=== PATIENT | female | born 1945 | race Caucasian/White ===

== ENCOUNTER 2018-03-08 12:22 | Day surgery (SDC) | payer MEDICARE, SELFPAY ==
--- NOTE | 2018-03-08 | PATH_ITS ---
[facility] Accession Number: [id number] . 01 Material submitted: . COLON POLYP AT 55CM . 02 Diagnosis: Colon Polyp At 55 CM: Hyperplastic polyp. [facility]/03/09/2018 . 02 Electronically signed: . Mirza Julien MD, PhD, Pathologist NPI- [id number] . 01 Gross description: . Received one formalin-filled container labeled with the patient's name and labeled colon polyp at 55 cm. The specimen consists of a 0.2 cm portion of tissue, entirely submitted in one cassette. (DC:[id number]) /FRR . 02 Pathologist provided ICD-10: K63.5 . 02 CPT . 645472 Performed at: 01 [facility] [address] [id number] MD Gerald Dunn MD Phone: [phone] Performed at: 02 [facility] [address] [place], [place] [id number] MD Daniel Jeff MD Phone: [phone]
[2018-03-08 13:15] VITALS: BP 119/74; PULSE 74; RESP 18; TEMP 35.9; O2SAT 100; BMI 22.4
[2018-03-08] MEDS: SODIUM CHLORIDE 0.9% 1,000 ML 84 ML IV (13:36)
[2018-03-08] MEDS: ONDANSETRON 4 MG/2 ML INJ IV (14:19)
--- NOTE | 2018-03-08 14:24 | SUR.PREOP ---
1419: Zofran 4 Mg IV given per Dr Conklin's order. Pt has strong history of nausea and vomiting with sedation/anesthesia medications. will place order, RN to sign. Update given to Endo RN's and Pt taken to endo suite at approximately 1423.
--- NOTE | 2018-03-08 14:25 | PM.PREOP ---
Pre-operative Note Interval Note Pre-op Check: Yes History & Physical Reviewed by Physician, Yes Exam Performed and Yes History & Physical exam performed today by Physician Changes: No H&P completed within 30 days and has changed as indicated here:: 72 yo female for screening colonoscopy, NO BRBPR, no Melena, no bowel habit changes in recent past. This is her 3rd colonoscopy, prior history of small benign polyps. NO blood thinners. Understands risks of possible missed polyp or lesion, bleeding, perforation, infection, sedation or airway. Pleasant female, NAD NCAT Lungs CTA CV RRR Abdomen SOFT, NT ND Extrems WWP, NO CCE Psych A/Ox3 Neuro BALLESTEROS, nonfocal PLAN- Screening colonoscopy ASA Class (for procedural sedation): I (Pleasant female NAD NCAT)
[2018-03-08] MEDS: MIDAZOLAM 5 MG/5 ML VIAL IV (14:34)
[2018-03-08] MEDS: fentaNYL 250 MCG/5 ML INJ IV (14:34)
[2018-03-08 15:20] VITALS: BP 106/67; PULSE 90; RESP 16; TEMP 36.5; O2SAT 96
--- NOTE | 2018-03-08 15:41 | PM.OP.ENDO ---
Operative Date/Time/Diagnoses Date of procedure: 03/08/18 Time of procedure: 15:11 Pre-op diagnosis: Screening for colon malignancy Post-op diagnosis: same Procedure & Clinicians Same procedure as scheduled: Yes Surgeon: Lamonte Conklin Procedure Notes SCOAP/Timeout: Yes Procedure in detail: After informed consent was obtained in the preop holding area including risks and benefits of colonoscopy including perforation missed lesion anesthesia sedation bleeding infection and signs and symptoms patient was taken to the anesthesia suite and given 2 mg of Versed in 100 mcg of fentanyl. Digital rectal exam showed mild external hemorrhoids and no mass lesion. Well lubricated colonoscope was now that into the rectum and advanced to the cecum. Tortuous colon was noted and multiple positions were required. The cecum was identified positively with terminal ileum and ileocecal valve. Withdrawal time was 16 min. Start time was 2:28 pm. finish time was 3:07 pm. Small benign-appearing polyp was seen at 55 cm removed with a single bite of the large cold forceps without significant bleeding. Retroflexion was performed showing no evidence of mass or internal hemorrhoids. The patient tolerated the procedure well was taken to the PACU breathing on her own volition. Scope withdrawal time: 16 min Sedation minutes: 39 Findings: polyp (Small 4mm polyp at 55cm.) Specimen(s): other Complications: none Recommendations: Colonscopy in 5 years Plan for aftercare: Follow up via phone for pathology.
--- NOTE | 2018-03-11 10:03 | PM.PREOP ---
Pre-operative Note Interval Note Pre-op Check: Yes History & Physical Reviewed by Physician and Yes History & Physical exam performed today by Physician Changes: No ASA Class (for procedural sedation): II
--- NOTE | 2018-03-11 10:03 | PM.HP.1 ---
History of Present Illness Date Patient Seen: 03/08/18 Time Patient Seen: 10:04 Chief complaint: colonoscopy [id number] Narrative: Preoperative note for screening colonoscopy Patient History Surgical History Status post tubal ligation Family & Social History Family History: Reviewed 03/11/18 by Lamonte Conklin MD Social History: household members friend(s) Meds Home Medications Medication Instructions Recorded Confirmed Type aspirin [Aspirin Low Dose] 81 mg PO DAILY 03/08/18 03/08/18 History Allergies Allergy/AdvReac Type Severity Reaction Status Date / Time No Known Drug Allergies Allergy Verified 03/08/18 13:34 Review of Systems Review of Systems All systems reviewed & are unremarkable except as noted in HPI and below Exam Vital Signs (past 8 hours): Oxygen Delivery Method Room Air Narrative Exam Narrative: Patient is a pleasant 72-year-old female who appears in good health well-nourished interactive speaking in full sentences. Anicteric sclera No carotid bruits Chest is symmetric clear to auscultation bilaterally good air movement No rhonchi rales or wheezes Heart regular rate and rhythm no murmurs rubs or gallops Abdomen soft nontender no obvious hernia Extremities warm well perfused no cyanosis clubbing or edema Full skin exam not performed Neuro moves all extremities grossly normal Psych is normal alert and oriented x3 normal thought normal judgment Assessment & Plan (1) Special screening for malignant neoplasms, colon: Problem details: Colonoscopy with or without biopsy today Current visit: No Status: Acute
== END 2018-03-08 15:32 | disposition home or self-care (01) ==
LOC: ENDO 12:25
PROVIDERS: PCP Family Medicine; Visit Provider Surgery
PROC: 0DJD8ZZ Inspection of Lower Intestinal Tract, Via Natural or Artificial Opening Endoscopic (ICD-10-PCS; CPT 45378; principal; 2018-03-08 13:00)
DX: Z12.11 Encounter for screening for malignant neoplasm of colon (principal); K63.5 Polyp of colon
CPT/HCPCS: 45380; 88305; 99152; 99153; J2250; J2405; J3010

== ENCOUNTER → 2020-11-22 10:34 | Outpatient (CLI) | payer MEDICARE, SELFPAY | PROVIDERS: PCP Family Medicine; Visit Provider Physician Assistant | DX: N39.0 Urinary tract infection, site not specified (principal) | CPT/HCPCS: 87077; 87086; 87186 ==

== ENCOUNTER → 2020-11-28 15:58 | Outpatient (CLI) | payer MEDICARE, SELFPAY | PROVIDERS: PCP Family Medicine; Visit Provider Physician Assistant Medical | DX: N39.0 Urinary tract infection, site not specified (principal) | CPT/HCPCS: 87086 ==

== ENCOUNTER → 2021-12-23 08:01 | Outpatient (CLI) | payer MEDICARE, SELFPAY ==
[2021-12-23 19:11] LABS: Add Manual Diff / Slide Review NO; Basophils Absolute Auto 0 /uL (0-100); Eosinophils Absolute Auto 200 /uL (0-450); Eosinophils Percent Auto 3.6 % (2-4); Hematocrit 36.9 % (36-46); Hemoglobin 12.5 g/dL (12.0-16.0); Lymphocytes Absolute Auto 1900 /uL (1100-4500); Lymphocytes Percent Auto 38.5 % (25-40); Mean Corpuscular HGB Conc 33.7 % (30-36); Mean Corpuscular Hemoglobin 29.3 PG (26-34); Mean Corpuscular Volume 86.9 fL (80-100); Monocytes Absolute Auto 500 /uL (0-900); Monocytes Percent Auto 9.9 % (3-14); Neutrophils Absolute Auto 2300 /uL (1500-7000); Platelet Count 221 X10^3/uL (150-400); Red Blood Cell Count 4.25 X10^6/uL (4.0-5.2); Red Cell Distribution Width 13.8 % (11.6-14.8); White Blood Cell Count 4.9 X10^3/uL (4.5-11.0)
[2021-12-23 19:23] LABS: Alanine Aminotransferase 27 IU/L (<35); Albumin Globulin Ratio 1.3 (1.0-2.8); Alkaline Phosphatase 80 U/L (38-126); Aspartate Aminotransferase 32 IU/L (14-36); BUN Creatinine Ratio 25.8 (6-22); Bilirubin Total 0.9 mg/dL (0.2-1.3); Blood Urea Nitrogen 17 mg/dL (7-17); Calcium 8.8 mg/dL (8.4-10.2); Carbon Dioxide 24 mmol/L (22-32); Chloride 110 mmol/L (98-107); Cholesterol 192 mg/dL (140-199); Estimated Glomerular Filt Rate > 60 mL/min (>60); Glucose 92 mg/dL (80-110); HDL Cholesterol 86 mg/dL (40-60); HEMOLYSIS < 15 (0-50); LDL Cholesterol Calculated 93 mg/dL (<100); Potassium 4.2 mmol/L (3.4-5.1); Sodium 140 mmol/L (137-145); Triglycerides 64 mg/dL (35-150)
== END ==
PROVIDERS: PCP Physician Assistant; Visit Provider Physician Assistant
DX: N39.0 Urinary tract infection, site not specified (principal); Z13.220 Encounter for screening for lipoid disorders
CPT/HCPCS: 80053; 80061; 85025

== ENCOUNTER 2022-07-01 18:33 | Inpatient (IN) | payer MEDICARE, SELFPAY ==
[2022-07-01] VITALS (26 sets, daily range): BP systolic 99–143; BP diastolic 52–90; PULSE 72–136; RESP 15–39; TEMP 35.8–36.7; O2SAT 88–97; BMI 24.4
--- NOTE | 2022-07-01 18:42 | DI.RAD.S_ITS ---
PROCEDURE: XR CHEST 1V INDICATIONS: chest pain TECHNIQUE: One view of the chest was acquired. COMPARISON: None. FINDINGS: Surgical changes and devices: None. Lungs and pleura: Bibasilar opacities as well as mild effusions, left greater than right are present. Mediastinum: Mediastinal contours appear normal. Heart size is enlarged. Bones and chest wall: No suspicious bony lesions. Overlying soft tissues appear unremarkable. IMPRESSION: Bibasilar opacities and effusions suggestive of pneumonia. Recommend interval followup to document resolution and exclude presence of underlying noninfectious/noninflammatory, potentially neoplastic mass. Dictated by: Kati Mcfadden M.D. on 07/01/2022 at 19:11 Approved by: Kati Mcfadden M.D. on 07/01/2022 at 19:12
--- NOTE | 2022-07-01 19:00 | ED_ITS ---
HPI - Arrhythmia/Palpitations General Chief Complaint: Arrhythmia/Palpitations Stated Complaint: Acute Afib Time Seen by Provider: 07/01/22 19:00 Source: patient Mode of arrival: Ambulatory History of Present Illness HPI narrative: 76-year-old female nonsmoker and previously healthy female presents to the emergency department with a chief complaint of 10 days increasing exertional fatigue and rapid heart rate. Today she finally presented to an outside facility and was evaluated and found to be in a rapid atrial fibrillation, she was given aspirin and encouraged to present to the emergency department for further evaluation. She denies any history of the same and has no new medications or other abnormalities in her recent medical history. She feels fatigued with exertion but denies any specific chest pain. She is had no fever or chills. She denies nausea or vomiting. She denies any history of hypertension, diabetes or stroke. Related Data Home Medications Medication Instructions Recorded Confirmed aspirin 81 mg tablet,delayed 81 mg PO DAILY 03/08/18 11/28/20 release (Ori Low Dose Aspirin) Allergies Allergy/AdvReac Type Severity Reaction Status Date / Time No Known Drug Allergies Allergy Verified 07/01/22 18:35 Review of Systems Review of Systems Narrative: GENERAL: Denies chills, fatigue, malaise, fever, sweats. HEENT: Denies sinus pain, ear pain, sore throat, difficulty swallowing, dizziness. RESPIRATORY: See HPI CARDIOVASCULAR: See HPI GASTROINTESTINAL: Denies nausea, vomiting, abdominal pain, diarrhea, constipation, melena. : Denies dysuria, frequency, incontinence, hematuria, urinary retention. MUSCULOSKELETAL: denies weakness, joint pain, or bony pain SKIN: Denies rash, skin lesions, or other NEUROLOGIC: Denies weakness, headache, numbness, change in speech, confusion, seizures, incoordination. PSYCHIATRIC: No concerning psychosocial issues. 12 point review of systems is negative except for those stated above Patient History Surgical History Status post tubal ligation Family History Mother Age: 96 Heart disease Hypertension Social History household members: friend(s) Smoking Status: Never smoker Smoking Status: Never smoker alcohol intake frequency: holidays/special occasions only Substance Use Type: does not use Exam Narrative Exam Narrative: GENERAL: [76] year old patient appears stated age. Well-developed patient, in mild distress. HEAD: Atraumatic. Normocephalic. EYES: Pupils equal round and reactive. Extraocular motions intact. No scleral icterus. No injection or drainage. ENT: Nose without bleeding, purulent drainage. Throat without erythema, tonsillar hypertrophy or exudate. Airway patent. NECK: Trachea midline. Non tender CARDIOVASCULAR: Tachycardic and irregular rhythm without murmurs, gallops, or rubs. RESPIRATORY: Faint crackles in bilateral bases, no hypoxemia or significant work of breathing GASTROINTESTINAL: Abdomen soft, non-tender, nondistended. EXTREMITIES: No edema or joint tenderness. BACK: Nontender without deformity or crepitance. No flank tenderness. NEURO: AOx3. SKIN: No rash or erythema of visible areas Initial Vital Signs Initial Vital Signs: Vital Signs Temperature 96.4 F L 07/01/22 18:35 Pulse Rate 117 H 07/01/22 18:35 Respiratory Rate 15 07/01/22 18:35 Blood Pressure 143/67 H 07/01/22 18:35 Pulse Oximetry 97 07/01/22 18:35 Oxygen Delivery Method 07/01/22 18:35 Course Orders Ordered: ED Orders 07/01/22 18:42 XR chest 1V Stat EKG-12 Lead Stat 07/01/22 19:04 BNP [NT-proBNP (BNP-Adult 18+)] Stat Complete Blood Count AUTO DIFF Stat Comprehensive Metabolic Panel Stat D Dimer Stat Lipase Stat Magnesium Stat Partial Thromboplastin Time Stat Procalcitonin Stat Prothrombin Time INR Stat Troponin & CK Cardiac Panel Stat 07/01/22 19:20 COVID19 -Nasal RAPID/Pre-Proc Stat 07/01/22 20:08 CT angio chest PE protocol Stat Acetaminophen (Acetaminophen 325 Mg Tablet) 650 mg PO Q6H PRN PRN Reason: Fever/Mild Pain (1-3) Apixaban (Apixaban 5 Mg Tablet) 5 mg PO BID ANU Furosemide (Furosemide 40 Mg/4 Ml Vial) 40 mg IV Q12HR ANU Hydromorphone HCl (Hydromorphone 1 Mg Inj) 1 mg IV Q4H PRN PRN Reason: Pain, Severe (7-10) DILTIAZEM (Diltiazem 125 Mg/125 Ml-D5w) 125 mg in 125 mls @ 5 mls/hr IV TITRATE ANU; Protocol Last Titration: 07/01/22 20:50 Dose: 0 mg/hr, 0 mls/hr Documented By: Admin: 07/01/22 19:16 Dose: 5 mg/hr, 5 mls/hr Documented By: GUILLERMO Naloxone HCl (Naloxone 0.4 Mg/Ml Vial) 0.2 mg IV Q2MIN PRN PRN Reason: Opiate Reversal Ondansetron HCl (Ondansetron 4 Mg/2 Ml Inj) 4 mg IV Q8HR PRN PRN Reason: Nausea And Vomiting Oxycodone HCl (Oxycodone Ir 5 Mg Tablet) 5 mg PO Q3H PRN PRN Reason: Pain, Moderate (4-6) Pantoprazole Sodium (Pantoprazole Dr 20 Mg Tablet) 20 mg PO 0700 [facility] Discontinued Medications Diltiazem HCl (Diltiazem 5 Mg/Ml Sdv) 10 mg IV NOW ONE Stop: 07/01/22 19:01 Last Admin: 07/01/22 19:15 Dose: 10 mg Documented By: GUILLERMO Reevaluation(s) Reevaluation #1: HR down into the 80s-90s after dilt push / drip at 5. Time: 19:40 Vital Signs Vital signs: Vital Signs - 8 hr 07/01/22 18:35 07/01/22 18:58 07/01/22 18:58 Temperature 96.4 F L Pulse Rate 117 H 111 H Respiratory Rate 15 Blood Pressure 143/67 H 120/68 Pulse Oximetry 97 97 Oxygen Delivery Method Room Air 07/01/22 19:00 07/01/22 19:04 07/01/22 19:04 Temperature Pulse Rate 128 H 136 H Respiratory Rate 20 39 H Blood Pressure 124/68 Pulse Oximetry 94 95 Oxygen Delivery Method 07/01/22 19:15 07/01/22 19:19 07/01/22 19:19 Temperature Pulse Rate 104 H 113 H Respiratory Rate 33 H Blood Pressure 124/68 125/61 Pulse Oximetry 95 Oxygen Delivery Method 07/01/22 19:30 07/01/22 19:30 07/01/22 19:35 Temperature Pulse Rate 87 88 Respiratory Rate 29 H 25 H Blood Pressure 99/54 L Pulse Oximetry 92 88 L Oxygen Delivery Method 07/01/22 19:35 07/01/22 19:40 07/01/22 19:45 Temperature Pulse Rate 88 Respiratory Rate 21 Blood Pressure 110/65 109/69 Pulse Oximetry 94 Oxygen Delivery Method 07/01/22 19:45 07/01/22 19:50 07/01/22 19:50 Temperature Pulse Rate 86 Respiratory Rate 26 H Blood Pressure 113/58 L 109/57 L Pulse Oximetry 96 Oxygen Delivery Method 07/01/22 19:55 07/01/22 19:55 07/01/22 20:00 Temperature Pulse Rate 88 Respiratory Rate 32 H Blood Pressure 105/60 99/64 Pulse Oximetry 93 Oxygen Delivery Method 07/01/22 20:00 07/01/22 20:05 07/01/22 20:05 Temperature Pulse Rate 94 H 91 H Respiratory Rate 28 H 21 Blood Pressure 107/55 L Pulse Oximetry 93 95 Oxygen Delivery Method 07/01/22 20:15 07/01/22 20:15 07/01/22 20:20 Temperature Pulse Rate 91 H 84 Respiratory Rate 26 H 27 H Blood Pressure 108/68 Pulse Oximetry 93 96 Oxygen Delivery Method 07/01/22 20:20 07/01/22 20:25 07/01/22 20:25 Temperature Pulse Rate 86 Respiratory Rate 32 H Blood Pressure 108/54 L 110/90 Pulse Oximetry 97 Oxygen Delivery Method MDM - Arrhythmia/Palpitations Lab Data Result diagrams: 07/01/22 19:04 07/01/22 19:04 Labs: Lab Results 07/01/22 07/01/22 07/01/22 Range/Units 19:04 19:04 19:04 WBC 8.0 (4.5-11.0) X10^3/uL RBC 4.34 (4.0-5.2) X10^6/uL Hgb 12.5 (12.0-16.0) g/dL Hct 37.7 (36-46) % MCV 86.9 (80-100) fL MCH 28.9 (26-34) PG MCHC 33.2 (30-36) % RDW 14.9 H (11.6-14.8) % Plt Count 260 (150-400) X10^3/uL Neut % (Auto) 73.6 (50-75) % Lymph % (Auto) 16.8 L (25-40) % [place] % (Auto) 7.0 (3-14) % Eos % (Auto) 1.6 L (2-4) % Baso % (Auto) 1.0 (0-2) % Neut # (Auto) 5900 (1919-8970) /uL Lymph # (Auto) 1300 (5928-7928) /uL [place] # (Auto) 600 (0-900) /uL Eos # (Auto) 100 (0-450) /uL Baso # (Auto) 100 (0-100) /uL PT 12.7 (10.1-12.7) SECONDS INR 1.1 (0.9-1.3) APTT 30 (26-36) SECONDS D-Dimer (<500) ng/ml Sodium 140 (137-145) mmol/L Potassium 3.9 (3.4-5.1) mmol/L Chloride 112 H (98-107) mmol/L Carbon Dioxide 20 L (22-32) mmol/L BUN 21 H (7-17) mg/dL Creatinine 0.57 (0.52-1.04) mg/dL Estimated GFR > 60 (>60) mL/min BUN/Creatinine Ratio 36.8 H (6-22) Glucose 86 (80-110) mg/dL Calcium 8.9 (8.4-10.2) mg/dL Magnesium 2.0 (1.6-2.3) mg/dL Total Bilirubin 0.6 (0.2-1.3) mg/dL AST 51 H (14-36) IU/L ALT 56 H (<35) IU/L Alkaline Phosphatase 119 (38-126) U/L Total Creatine Kinase 166 H (30-135) U/L CK-MB (CK-2) 3.45 H (<2.37) ng/mL CK-MB (CK-2) Rel Index 2.1 (1.5-5.0) % Troponin I < 0.012 (0.01-0.034) ng/mL NT-Pro-B Natriuret Pep (<450) pg/mL Total Protein 7.1 (6.3-8.2) g/dL Albumin 4.0 (3.5-5.0) g/dL Globulin 3.1 (1.7-4.1) g/dL Albumin/Globulin Ratio 1.3 (1.0-2.8) Lipase 93 (23-300) U/L Procalcitonin (<0.5) ng/mL SARS-CoV-2 (PCR) (Negative) 07/01/22 07/01/22 07/01/22 Range/Units 19:04 19:04 19:04 WBC (4.5-11.0) X10^3/uL RBC (4.0-5.2) X10^6/uL Hgb (12.0-16.0) g/dL Hct (36-46) % MCV (80-100) fL MCH (26-34) PG MCHC (30-36) % RDW (11.6-14.8) % Plt Count (150-400) X10^3/uL Neut % (Auto) (50-75) % Lymph % (Auto) (25-40) % [place] % (Auto) (3-14) % Eos % (Auto) (2-4) % Baso % (Auto) (0-2) % Neut # (Auto) (0396-3409) /uL Lymph # (Auto) (0368-9589) /uL [place] # (Auto) (0-900) /uL Eos # (Auto) (0-450) /uL Baso # (Auto) (0-100) /uL PT (10.1-12.7) SECONDS INR (0.9-1.3) APTT (26-36) SECONDS D-Dimer 1302 H (<500) ng/ml Sodium (137-145) mmol/L Potassium (3.4-5.1) mmol/L Chloride (98-107) mmol/L Carbon Dioxide (22-32) mmol/L BUN (7-17) mg/dL Creatinine (0.52-1.04) mg/dL Estimated GFR (>60) mL/min BUN/Creatinine Ratio (6-22) Glucose (80-110) mg/dL Calcium (8.4-10.2) mg/dL Magnesium (1.6-2.3) mg/dL Total Bilirubin (0.2-1.3) mg/dL AST (14-36) IU/L ALT (<35) IU/L Alkaline Phosphatase (38-126) U/L Total Creatine Kinase (30-135) U/L CK-MB (CK-2) (<2.37) ng/mL CK-MB (CK-2) Rel Index (1.5-5.0) % Troponin I (0.01-0.034) ng/mL NT-Pro-B Natriuret Pep 812 H (<450) pg/mL Total Protein (6.3-8.2) g/dL Albumin (3.5-5.0) g/dL Globulin (1.7-4.1) g/dL Albumin/Globulin Ratio (1.0-2.8) Lipase (23-300) U/L Procalcitonin 0.04 (<0.5) ng/mL SARS-CoV-2 (PCR) (Negative) 07/01/22 Range/Units 19:20 WBC (4.5-11.0) X10^3/uL RBC (4.0-5.2) X10^6/uL Hgb (12.0-16.0) g/dL Hct (36-46) % MCV (80-100) fL MCH (26-34) PG MCHC (30-36) % RDW (11.6-14.8) % Plt Count (150-400) X10^3/uL Neut % (Auto) (50-75) % Lymph % (Auto) (25-40) % [place] % (Auto) (3-14) % Eos % (Auto) (2-4) % Baso % (Auto) (0-2) % Neut # (Auto) (2320-2018) /uL Lymph # (Auto) (9264-3992) /uL [place] # (Auto) (0-900) /uL Eos # (Auto) (0-450) /uL Baso # (Auto) (0-100) /uL PT (10.1-12.7) SECONDS INR (0.9-1.3) APTT (26-36) SECONDS D-Dimer (<500) ng/ml Sodium (137-145) mmol/L Potassium (3.4-5.1) mmol/L Chloride (98-107) mmol/L Carbon Dioxide (22-32) mmol/L BUN (7-17) mg/dL Creatinine (0.52-1.04) mg/dL Estimated GFR (>60) mL/min BUN/Creatinine Ratio (6-22) Glucose (80-110) mg/dL Calcium (8.4-10.2) mg/dL Magnesium (1.6-2.3) mg/dL Total Bilirubin (0.2-1.3) mg/dL AST (14-36) IU/L ALT (<35) IU/L Alkaline Phosphatase (38-126) U/L Total Creatine Kinase (30-135) U/L CK-MB (CK-2) (<2.37) ng/mL CK-MB (CK-2) Rel Index (1.5-5.0) % Troponin I (0.01-0.034) ng/mL NT-Pro-B Natriuret Pep (<450) pg/mL Total Protein (6.3-8.2) g/dL Albumin (3.5-5.0) g/dL Globulin (1.7-4.1) g/dL Albumin/Globulin Ratio (1.0-2.8) Lipase (23-300) U/L Procalcitonin (<0.5) ng/mL SARS-CoV-2 (PCR) Negative (Negative) Imaging Data Chest x-ray: Radiologist's Impresson: Close Chest CTA (Signed) Gerald Lambert - 07/01/22 Chest X-Ray (Signed) Kati Mcfadden - 07/01/22 EKG Rpt. 07/01/22 Telemetry Strips 03/08/18 Launch?[place] [address] XRay Report Signed Patient: Hayley Arreola MR#: [id number] : 1945 Acct:[id number] Age/Sex: 76 / F Date of Service: 07/01/22 Loc: ED Accession Number: [id number] ?? Procedure: XR chest 1V Ordering Provider: Sherman Madera D.O. PROCEDURE:? XR CHEST 1V ? INDICATIONS:? chest pain ? TECHNIQUE:? One view of the chest was acquired.? ? COMPARISON:? None. ? FINDINGS:? ? Surgical changes and devices:? None.? ? Lungs and pleura:? Bibasilar opacities as well as mild effusions, left greater than right are present. ? Mediastinum:? Mediastinal contours appear normal.? Heart size is enlarged. ? Bones and chest wall:? No suspicious bony lesions.? Overlying soft tissues appear unremarkable.? ? IMPRESSION:? Bibasilar opacities and effusions suggestive of pneumonia. Recommend interval followup to document resolution and exclude presence of underlying noninfectious/noninflammatory, potentially neoplastic mass. ? ? Dictated by: Kati Mcfadden M.D. on 07/01/2022 at 19:11 ? ? Approved by: Kati Mcfadden M.D. on 07/01/2022 at 19:12 ? CT scan - chest: Radiologist's Impresson: [place] [address] CT Scan Report Signed Patient: Hayley Arreola MR#: [id number] : 1945 Acct:[id number] Age/Sex: 76 / F Date of Service: 07/01/22 Loc: 90B-1 Accession Number: [id number] ?? Procedure: CT angio chest PE protocol Ordering Provider: Sherman Madera D.O. PROCEDURE:? CT ANGIO CHEST PE PROTOCOL ? INDICATIONS:? new AFib, hypoxemia, SOB, critical dimer ? TECHNIQUE:? After the administration of intravenous contrast, 2 mm thick sections acquired from the pulmonary apices to the posterior costophrenic angles.? 3-dimensional maximum intensity projection (MIP) coronal and sagittal reformats were then acquired through the thorax.? For radiation dose reduction, the following was used:? automated exposure control, adjustment of mA and/or kV according to patient size.? ? COMPARISON:? [facility], CR, XR CHEST 1V, 07/01/2022, 18:45. ? FINDINGS:? Image quality:? Excellent.? ? Pulmonary arteries:? Pulmonary arteries are normal in size, and demonstrate no intraluminal filling defects to suggest central pulmonary embolism.? ? Lower Neck: No lymphadenopathy by size criteria. Thyroid:? Visualized thyroid demonstrates no discrete nodules. Axillae: No lymphadenopathy by size criteria. Chest Wall:? Unremarkable.? Bones: Visualized osseous structures demonstrate no suspicious lesions. ? Lungs and Airways:? No acute consolidation.? There is bilateral interlobular septal thickening with indistinct ground-glass opacities compatible with pulmonary edema.? There are bibasilar linear areas of atelectasis.? The trachea and central airways are patent. Pleura: No pneumothorax.? There are moderate to large bilateral pleural effusions with associated compressive atelectasis.? ? Heart: Heart size is enlarged.? No pericardial effusion. Thoracic Vessels: The thoracic aorta is normal in size.? Mediastinum and Mariya: No lymphadenopathy by size criteria. Esophagus: No wall thickening. No hiatal hernia. ? Abdomen:? Visualized upper abdominal solid organs appear normal in the early arterial phase of enhancement.? ? IMPRESSION:? ? 1. No evidence of pulmonary embolism. ? 2. Moderate to large bilateral pleural effusions with associated compressive atelectasis. ? ? 3. Pulmonary edema and cardiomegaly compatible with congestive heart failure.? ? ? Dictated by: Gerald Lambert M.D. on 07/01/2022 at 21:23 ? ? Approved by: Gerald Lambert M.D. on 07/01/2022 at 21:31 ? ECG Data Interpretation: [1843] EKG is tachycardic and irregular and free of any signs of ischemia or ectopy. No ST segmental elevation or depression. No T wave inversions MDM Narrative Medical decision making narrative: 76-year-old female nonsmoker with benign medical history presents from outside facility for evaluation of first-time presentation of atrial fibrillation which has persisted for 10 days. She is fatigued and short of breath but not hypoxemic and denies any chest pain or noted lightheadedness. Initial EKG shows a rapid atrial fibrillation without signs of ischemia. She is given a Cardizem push followed by a drip at 5 with improved rates to the 80s. Chest x-ray is suggestive of possible pneumonia, however she is had no productive cough, fever or elevated white blood cell count. Her procalcitonin is also not elevated, these findings are most likely a consequence of pulmonary edema. CT angiogram ordered given critical D-dimer and new onset AFib. Thankfully there is no central occlusion and there is no, however bilateral pleural effusions. Have discussed this case with hospitalist who has seen patient at the bedside. Anticoagulation ordered, ongoing rate control and admission for stabilization of condition and further investigation with ongoing labs, likely echocardiogram etc.. Patient and family understand and are in agreement with the plan Discharge Plan Departure Patient Disposition: Admitted As Inpatient Clinical Impression: Atrial fibrillation with rapid ventricular response, Bilateral pleural effusion Admit Date/Time: 11/29/22 20:43 Admit Provider: Radha Topete
[2022-07-01 19:14] LABS: Add Manual Diff / Slide Review NO; Basophils Absolute Auto 100 /uL (0-100); Eosinophils Absolute Auto 100 /uL (0-450); Eosinophils Percent Auto 1.6 % (2-4); Hematocrit 37.7 % (36-46); Hemoglobin 12.5 g/dL (12.0-16.0); Lymphocytes Absolute Auto 1300 /uL (1100-4500); Lymphocytes Percent Auto 16.8 % (25-40); Mean Corpuscular HGB Conc 33.2 % (30-36); Mean Corpuscular Hemoglobin 28.9 PG (26-34); Mean Corpuscular Volume 86.9 fL (80-100); Monocytes Absolute Auto 600 /uL (0-900); Neutrophils Absolute Auto 5900 /uL (1500-7000); Neutrophils Percent Auto 73.6 % (50-75); Platelet Count 260 X10^3/uL (150-400); Red Blood Cell Count 4.34 X10^6/uL (4.0-5.2); Red Cell Distribution Width 14.9 % (11.6-14.8)
[2022-07-01] MEDS: dilTIAZem 5 MG/ML SDV 10 MG IV (19:15)
[2022-07-01] MEDS: DILTIAZEM 125 MG/125 ML PIGGYBACK IV (19:16)
[2022-07-01 19:28] LABS: INR 1.1 (0.9-1.3); Prothrombin Time 12.7 SECONDS (10.1-12.7)
[2022-07-01 19:31] LABS: PTT Partial Thromboplastin Tim 30 SECONDS (26-36)
[2022-07-01 19:41] LABS: Alanine Aminotransferase 56 IU/L (<35); Albumin Globulin Ratio 1.3 (1.0-2.8); Alkaline Phosphatase 119 U/L (38-126); Aspartate Aminotransferase 51 IU/L (14-36); BUN Creatinine Ratio 36.8 (6-22); Bilirubin Total 0.6 mg/dL (0.2-1.3); Blood Urea Nitrogen 21 mg/dL (7-17); Calcium 8.9 mg/dL (8.4-10.2); Carbon Dioxide 20 mmol/L (22-32); Chloride 112 mmol/L (98-107); Creatine Kinase 166 U/L (30-135); Estimated Glomerular Filt Rate > 60 mL/min (>60); Globulin 3.1 g/dL (1.7-4.1); Glucose 86 mg/dL (80-110); HEMOLYSIS < 15 (0-50); Lipase 93 U/L (23-300); Potassium 3.9 mmol/L (3.4-5.1); Sodium 140 mmol/L (137-145); Total Protein 7.1 g/dL (6.3-8.2)
[2022-07-01 19:49] LABS: D Dimer 1302 ng/ml (<500)
[2022-07-01 19:52] LABS: COVID19 -Nasal RAPID Negative (Negative)
[2022-07-01 19:53] LABS: Troponin I < 0.012 ng/mL (0.01-0.034)
[2022-07-01 19:56] LABS: CKMB % Relative Index 2.1 % (1.5-5.0); Creatine Kinase MB 3.45 ng/mL (<2.37)
--- NOTE | 2022-07-01 20:08 | DI.CT.S_ITS ---
PROCEDURE: CT ANGIO CHEST PE PROTOCOL INDICATIONS: new AFib, hypoxemia, SOB, critical dimer TECHNIQUE: After the administration of intravenous contrast, 2 mm thick sections acquired from the pulmonary apices to the posterior costophrenic angles. 3-dimensional maximum intensity projection (MIP) coronal and sagittal reformats were then acquired through the thorax. For radiation dose reduction, the following was used: automated exposure control, adjustment of mA and/or kV according to patient size. COMPARISON: [facility], CR, XR CHEST 1V, 07/01/2022, 18:45. FINDINGS: Image quality: Excellent. Pulmonary arteries: Pulmonary arteries are normal in size, and demonstrate no intraluminal filling defects to suggest central pulmonary embolism. Lower Neck: No lymphadenopathy by size criteria. Thyroid: Visualized thyroid demonstrates no discrete nodules. Axillae: No lymphadenopathy by size criteria. Chest Wall: Unremarkable. Bones: Visualized osseous structures demonstrate no suspicious lesions. Lungs and Airways: No acute consolidation. There is bilateral interlobular septal thickening with indistinct ground-glass opacities compatible with pulmonary edema. There are bibasilar linear areas of atelectasis. The trachea and central airways are patent. Pleura: No pneumothorax. There are moderate to large bilateral pleural effusions with associated compressive atelectasis. Heart: Heart size is enlarged. No pericardial effusion. Thoracic Vessels: The thoracic aorta is normal in size. Mediastinum and Mariya: No lymphadenopathy by size criteria. Esophagus: No wall thickening. No hiatal hernia. Abdomen: Visualized upper abdominal solid organs appear normal in the early arterial phase of enhancement. IMPRESSION: 1. No evidence of pulmonary embolism. 2. Moderate to large bilateral pleural effusions with associated compressive atelectasis. 3. Pulmonary edema and cardiomegaly compatible with congestive heart failure. Dictated by: Gerald Lambert M.D. on 07/01/2022 at 21:23 Approved by: Gerald Lambert M.D. on 07/01/2022 at 21:31
[2022-07-01 20:24] LABS: NT-proBNP (BNP-Adult 18+) 812 pg/mL (<450)
[2022-07-01 20:31] LABS: Procalcitonin 0.04 ng/mL (<0.5)
--- NOTE | 2022-07-01 21:36 | DI.ECHO.S_ITS ---
[facility]---------+ [facility] +---------+ : : [address] : [address] : : : : [id number] : : : : Phone: [phone] Echocardiogram Report + :Name: AMANDA ROSE Study Date: 07/02/2022 Height: 63 in : :[facility] ReadingLocation: Weight: 138 lb: : Gender: Female BSA: 1.7 m2 : :: 1945 Age: 76 yrs BP: 87/48 mmHg: :Reason For Study: AFIB WITH RVR, HEART FAILURE : :Ordering Physician: MARION, : :OBI SINHA Performed By: Margy Jurado : :Referring: OBI SCHULTZ MD : + Interpretation Summary The left ventricular cavity is small. The ejection fraction is estimated to be 40-45%. Diastolic function could not be accurately assessed due to atrial fibrillation. The right ventricle is moderately dilated. Right ventricular systolic function is mild to moderately reduced. Severe biatrial enlargement. There is mild aortic regurgitation. There is moderate to severe tricuspid regurgitation. There is hepatic vein flow reversal. The IVC is dilated and it collapses less than 50% with a sniff. This suggests a high right atrial pressure of 15 mm Hg. Suspect that the estimated PA systolic pressure is underestimated. Procedure: A two-dimensional transthoracic echocardiogram with color flow and Doppler was performed. The study quality was technically adequate. There is no prior echocardiogram noted for this patient. The patient was in atrial fibrillation with heart rates between 71-103 bpm during the exam. Left Ventricle: The left ventricular cavity is small. There is normal left ventricular wall thickness. The ejection fraction is estimated to be 40-45%. Paradoxical septal motion is consistent with right ventricular volume overload. Diastolic function could not be accurately assessed due to atrial fibrillation. Right Ventricle: The right ventricle is moderately dilated. Right ventricular systolic function is mild to moderately reduced. Atria: The left atrium is severely dilated. The right atrium is severely dilated. There is no Doppler evidence for an interatrial shunt. Mitral Valve: The mitral valve is normal in structure and function. There is trace mitral regurgitation. Aortic Valve: The aortic valve opens well. The aortic valve is trileaflet. There is no aortic valve stenosis. There is mild aortic regurgitation. Tricuspid Valve: The tricuspid valve leaflets are thin and pliable. There is moderate to severe tricuspid regurgitation. The right ventricular systolic pressure is estimated to be at least 34 mmHg based on an estimated right atrial pressure of 15 mm Hg. There is hepatic vein flow reversal. Pulmonic Valve: The pulmonic valve leaflets are thin and pliable; valve motion is normal. There is trace pulmonic regurgitation. Great Vessels: The aortic root is normal size. The dimensions of the ascending aorta are normal. The IVC is dilated (diameter is greater than 2.1 cm) and it collapses less than 50% with a sniff. This suggests a high right atrial pressure of 15 mm Hg. Pericardium/ Pleura There is no pericardial effusion. There is a pleural effusion present. MMode/2D Measurements & Calculations LVIDd: 3.9 cm LVOT diam: 2.0 cm LVIDs: 2.9 cm Ao root diam: 3.1 cm FS: 24.4 % asc Aorta Diam: 2.8 cm IVSd: 0.56 cm Ao Arch Diam (Prox Trans): 3.1 cm LVPWd: 0.86 cm LV marcial. diameter/BSA (cm/m^2): 2.3 LV sys. diameter/BSA (cm/m^2): 1.8 LA A2 area: 27.5 cm2 RA long axis: 6.2 cm LA A4 area: 24.5 cm2 RA area: 26.4 cm2 LA length (vol): 6.3 cm RA vol: 95.4 ml LA vol: 91.1 ml RA : 57.8 ml/m2 LA vol index: 55.1 ml/m2 IVC diam: 2.1 cm RVD1 (basal): 4.3 cm RVD2 (mid): 2.8 cm TAPSE: 1.5 cm Doppler Measurements & Calculations Ao V2 max: 101.6 cm/sec LVOT Max Audi: 67.9 cm/sec Ao V2 mean: 67.9 cm/sec LV V1 max P.8 mmHg Ao max P.1 mmHg LV V1 VTI: 12.8 cm Ao mean P.1 mmHg JADEN(I,D): 2.3 cm2 Ao V2 VTI: 17.5 cm JADEN(V,D): 2.1 cm2 sev ratio: 0.73 JADEN indexed to BSA (cm^2/m^2): 1.4 MV E max audi: 80.2 cm/sec TR max audi: 218.3 cm/sec MV A max audi: 1.6 cm/sec TR max P.1 mmHg MV E/A: 50.8 PA V2 max: 63.6 cm/sec Med Peak E' Audi: 13.2 cm/sec PA V2 mean: 43.5 cm/sec E/E' med: 6.1 PA mean P.87 mmHg Lat Peak E' Audi: 9.9 cm/sec PA pr(Accel): 46.5 mmHg E/E' lat: 8.1 E/e' average: 7.1 MV dec time: 0.22 sec SV(LVOT): 40.7 ml Reading Physician:09:58 AM
--- NOTE | 2022-07-01 21:59 | PM.HP.1 ---
History of Present Illness History of Present Illness Date Patient Seen: 07/01/22 Chief complaint: Acute Afib Narrative: 76-year-old female nonsmoker and previously healthy female presents to the emergency department with a chief complaint of 10 days increasing exertional fatigue and rapid heart rate.? Today she finally presented to an outside facility and was evaluated and found to be in a rapid atrial fibrillation, she was given aspirin and encouraged to present to the emergency department for further evaluation.? She denies any history of the same and has no new medications or other abnormalities in her recent medical history.? She feels fatigued with exertion but denies any specific chest pain.? She is had no fever or chills.? She denies nausea or vomiting.? She denies any history of hypertension, diabetes or stroke. When I saw her in the ER she continues to have palpitations and shortness of breath. Patient confirms her breathing difficulties are worse when she is lying flat and then worsened cough at night. Patient also confirms that worsening pedal edema and dyspnea on exertion, unable to carry her daily activities because of the shortness of breath. She denies any orthopnea. Patient denies any episodes of chest pain but confirms the palpitations. Patient denies any recent viral illness episodes. Patient History Surgical History Status post tubal ligation Comment: Patient does not have any significant past medical problems and she does not take any medications at home. Very active at baseline. Family & Social History Family History Mother Age: 96 Heart disease Hypertension Social History: household members friend(s) Safety & Behavioral: Feels Safe in Current Yes Environment Been Physically Hurt or No Threatened By a Person Tobacco & Substance use: Smoking Status Never smoker alcohol intake frequency holiday/special occasion Substance Use Type does not use Comment: She has 3 children. 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 She is very active at baseline. Still working. Meds Home Medications and Allergies Home Medications Medication Instructions Recorded Confirmed Type aspirin 81 mg tablet,delayed 81 mg PO DAILY 03/08/18 11/28/20 History release (Ori Low Dose Aspirin) Allergies Allergy/AdvReac Type Severity Reaction Status Date / Time No Known Drug Allergies Allergy Verified 07/01/22 18:35 Review of Systems Review of Systems Narrative: All other systems reviewed, negative other than as mentioned above. Exam Vital Signs (past 8 hours): - 07/01/22 18:35 07/01/22 18:58 07/01/22 18:58 Temperature 96.4 F L Pulse Rate 117 H 111 H Respiratory Rate 15 Blood Pressure 143/67 H 120/68 Pulse Oximetry 97 97 Oxygen Delivery Method Room Air 07/01/22 19:00 07/01/22 19:04 07/01/22 19:04 Temperature Pulse Rate 128 H 136 H Respiratory Rate 20 39 H Blood Pressure 124/68 Pulse Oximetry 94 95 Oxygen Delivery Method 07/01/22 19:15 07/01/22 19:19 07/01/22 19:19 Temperature Pulse Rate 104 H 113 H Respiratory Rate 33 H Blood Pressure 124/68 125/61 Pulse Oximetry 95 Oxygen Delivery Method 07/01/22 19:30 07/01/22 19:30 07/01/22 19:35 Temperature Pulse Rate 87 88 Respiratory Rate 29 H 25 H Blood Pressure 99/54 L Pulse Oximetry 92 88 L Oxygen Delivery Method 07/01/22 19:35 07/01/22 19:40 07/01/22 19:45 Temperature Pulse Rate 88 Respiratory Rate 21 Blood Pressure 110/65 109/69 Pulse Oximetry 94 Oxygen Delivery Method 07/01/22 19:45 07/01/22 19:50 07/01/22 19:50 Temperature Pulse Rate 86 Respiratory Rate 26 H Blood Pressure 113/58 L 109/57 L Pulse Oximetry 96 Oxygen Delivery Method 07/01/22 19:55 07/01/22 19:55 07/01/22 20:00 Temperature Pulse Rate 88 Respiratory Rate 32 H Blood Pressure 105/60 99/64 Pulse Oximetry 93 Oxygen Delivery Method 07/01/22 20:00 07/01/22 20:05 07/01/22 20:05 Temperature Pulse Rate 94 H 91 H Respiratory Rate 28 H 21 Blood Pressure 107/55 L Pulse Oximetry 93 95 Oxygen Delivery Method 07/01/22 20:15 07/01/22 20:15 07/01/22 20:20 Temperature Pulse Rate 91 H 84 Respiratory Rate 26 H 27 H Blood Pressure 108/68 Pulse Oximetry 93 96 Oxygen Delivery Method 07/01/22 20:20 07/01/22 20:25 07/01/22 20:25 Temperature Pulse Rate 86 Respiratory Rate 32 H Blood Pressure 108/54 L 110/90 Pulse Oximetry 97 Oxygen Delivery Method 07/01/22 20:45 Temperature Pulse Rate 72 Respiratory Rate 29 H Blood Pressure Pulse Oximetry Oxygen Delivery Method Oxygen Delivery Method Room Air Narrative Exam Narrative: Patient exam positive for pedal edema, basal crackles on lung exam, not disappearing crackles with the cough. Constitutional, HEENT, eyes, neck, chest, respiratory, cardiovascular, GI, skin, neuro, extremity, psychiatric exam within normal limits except as mentioned above. Objective Labs Result Diagrams: 07/01/22 19:04 07/01/22 19:04 Labs: Laboratory Results - last 24 hr 07/01/22 07/01/22 07/01/22 19:04 19:04 19:04 WBC 8.0 RBC 4.34 Hgb 12.5 Hct 37.7 MCV 86.9 MCH 28.9 MCHC 33.2 RDW 14.9 H Plt Count 260 Neut % (Auto) 73.6 Lymph % (Auto) 16.8 L [place] % (Auto) 7.0 Eos % (Auto) 1.6 L Baso % (Auto) 1.0 Neut # (Auto) 5900 Lymph # (Auto) 1300 [place] # (Auto) 600 Eos # (Auto) 100 Baso # (Auto) 100 PT 12.7 INR 1.1 APTT 30 D-Dimer Sodium 140 Potassium 3.9 Chloride 112 H Carbon Dioxide 20 L BUN 21 H Creatinine 0.57 Estimated GFR > 60 BUN/Creatinine Ratio 36.8 H Glucose 86 Calcium 8.9 Magnesium 2.0 Total Bilirubin 0.6 AST 51 H ALT 56 H Alkaline Phosphatase 119 Total Creatine Kinase 166 H CK-MB (CK-2) 3.45 H CK-MB (CK-2) Rel Index 2.1 Troponin I < 0.012 NT-Pro-B Natriuret Pep Total Protein 7.1 Albumin 4.0 Globulin 3.1 Albumin/Globulin Ratio 1.3 Lipase 93 Procalcitonin SARS-CoV-2 (PCR) 07/01/22 07/01/22 07/01/22 19:04 19:04 19:04 WBC RBC Hgb Hct MCV MCH MCHC RDW Plt Count Neut % (Auto) Lymph % (Auto) [place] % (Auto) Eos % (Auto) Baso % (Auto) Neut # (Auto) Lymph # (Auto) [place] # (Auto) Eos # (Auto) Baso # (Auto) PT INR APTT D-Dimer 1302 H Sodium Potassium Chloride Carbon Dioxide BUN Creatinine Estimated GFR BUN/Creatinine Ratio Glucose Calcium Magnesium Total Bilirubin AST ALT Alkaline Phosphatase Total Creatine Kinase CK-MB (CK-2) CK-MB (CK-2) Rel Index Troponin I NT-Pro-B Natriuret Pep 812 H Total Protein Albumin Globulin Albumin/Globulin Ratio Lipase Procalcitonin 0.04 SARS-CoV-2 (PCR) 07/01/22 19:20 WBC RBC Hgb Hct MCV MCH MCHC RDW Plt Count Neut % (Auto) Lymph % (Auto) [place] % (Auto) Eos % (Auto) Baso % (Auto) Neut # (Auto) Lymph # (Auto) [place] # (Auto) Eos # (Auto) Baso # (Auto) PT INR APTT D-Dimer Sodium Potassium Chloride Carbon Dioxide BUN Creatinine Estimated GFR BUN/Creatinine Ratio Glucose Calcium Magnesium Total Bilirubin AST ALT Alkaline Phosphatase Total Creatine Kinase CK-MB (CK-2) CK-MB (CK-2) Rel Index Troponin I NT-Pro-B Natriuret Pep Total Protein Albumin Globulin Albumin/Globulin Ratio Lipase Procalcitonin SARS-CoV-2 (PCR) Negative Assessment & Plan Assessment and plan (1) Atrial fibrillation with rapid ventricular response: Status: Acute (2) Bilateral pleural effusion: Status: Acute Assessment & Plan narrative: Atrial fibrillation with RVR -required Cardizem drip in the ER to achieve rate control, have to keep her in ICU for appropriate titration of the drip to keep heart rate under control. Patient does have signs of heart failure, her chads-Vasc score keeps her at high risk, anticoagulation risk benefit discussed, started on Eliquis. Will transition to p.o. Cardizem once her heart rate is better most likely in the morning. We will consult Cardiology for further recommendations in the morning. Echocardiogram for further assessment. New onset heart failure, most likely systolic -echocardiogram pending. [place] criteria consistent with heart failure diagnosis. Negative for cardiac event. Troponins are negative. Continue cardiac monitoring. Follow up on echo. Bilateral pedal edema and bilateral pleural effusion most likely secondary to heart failure -Lasix IV 40 mg b.i.d., strict Is&Os, continue kidney function monitoring Eliquis for DVT prophylaxis, Protonix for GI prophylaxis. Patient is full code. Care plan is extensively discussed with the patient and at bedside, answered all questions, overall prognosis is good. Time Spent With Patient Critical Care time: I spent a total of [] minutes of critical care time on this patient's care today; this time is exclusive of procedural time.
[2022-07-01] MEDS: APIXABAN 5 MG TABLET PO (23:27)
[2022-07-02] VITALS (14 sets, daily range): BP systolic 87–147; BP diastolic 48–73; PULSE 82–109; RESP 18–41; TEMP 36.6–36.8; O2SAT 90–98
[2022-07-02] MEDS: ACETAMINOPHEN 325 MG TABLET 650 MG PO (04:00)
[2022-07-02 04:56] LABS: Add Manual Diff / Slide Review NO; Basophils Absolute Auto 100 /uL (0-100); Basophils Percent Auto 0.8 % (0-2); Eosinophils Absolute Auto 0 /uL (0-450); Eosinophils Percent Auto 0.5 % (2-4); Hematocrit 35.9 % (36-46); Hemoglobin 11.8 g/dL (12.0-16.0); Lymphocytes Absolute Auto 1200 /uL (1100-4500); Lymphocytes Percent Auto 17.7 % (25-40); Mean Corpuscular HGB Conc 32.9 % (30-36); Mean Corpuscular Hemoglobin 28.7 PG (26-34); Mean Corpuscular Volume 87.2 fL (80-100); Monocytes Absolute Auto 600 /uL (0-900); Monocytes Percent Auto 8.3 % (3-14); Neutrophils Absolute Auto 5100 /uL (1500-7000); Neutrophils Percent Auto 72.7 % (50-75); Platelet Count 250 X10^3/uL (150-400); Red Blood Cell Count 4.12 X10^6/uL (4.0-5.2)
[2022-07-02 05:00] LABS: Alanine Aminotransferase 73 IU/L (<35); Albumin 3.6 g/dL (3.5-5.0); Albumin Globulin Ratio 1.3 (1.0-2.8); Alkaline Phosphatase 90 U/L (38-126); Aspartate Aminotransferase 74 IU/L (14-36); BUN Creatinine Ratio 30.4 (6-22); Bilirubin Total 0.8 mg/dL (0.2-1.3); Blood Urea Nitrogen 21 mg/dL (7-17); Calcium 8.7 mg/dL (8.4-10.2); Carbon Dioxide 21 mmol/L (22-32); Chloride 111 mmol/L (98-107); Estimated Glomerular Filt Rate > 60 mL/min (>60); Globulin 2.7 g/dL (1.7-4.1); Glucose 113 mg/dL (80-110); HEMOLYSIS < 15 (0-50); Potassium 3.9 mmol/L (3.4-5.1); Sodium 141 mmol/L (137-145); Total Protein 6.3 g/dL (6.3-8.2)
[2022-07-02 05:08] LABS: NT-proBNP (BNP-Adult 18+) 980 pg/mL (<450)
--- NOTE | 2022-07-02 05:38 | DI.US.S_ITS ---
PROCEDURE: US ABDOMEN LIMITED INDICATIONS: POSSIBLE LIVER DISEASE TECHNIQUE: Real-time focused scanning was performed of the abdomen, with image documentation. COMPARISON: [facility], CT, CT ANGIO CHEST PE PROTOCOL, 07/01/2022, 20:21. FINDINGS: The liver is normal in size and demonstrates no focal lesions. No findings of gallstones or sludge are seen. The gallbladder wall is not thickened, measuring 3 mm or less. No specific pericholecystic fluid is seen. The sonographic Monson sign is negative. There is no biliary dilatation, the common bile duct measures 5 mm. No significant pancreatic abnormality is seen on these images. A right pleural effusion is incidentally noted. IMPRESSION: Normal liver by ultrasound. The gallbladder demonstrates a normal sonographic appearance. No biliary dilatation is seen. A right pleural effusion can be seen on this study. (the Bilateral pleural effusions can be seen on the recent prior CT.) Dictated by: Shaun Gonzales M.D. on 07/02/2022 at 8:53 Approved by: Shaun Gonzales M.D. on 07/02/2022 at 8:54
[2022-07-02 05:54] LABS: Creatine Kinase 119 U/L (30-135)
[2022-07-02 06:07] LABS: Troponin I < 0.012 ng/mL (0.01-0.034)
[2022-07-02 06:10] LABS: CKMB % Relative Index 1.8 % (1.5-5.0); Creatine Kinase MB 2.16 ng/mL (<2.37)
[2022-07-02] MEDS: PANTOPRAZOLE DR 20 MG TABLET PO (06:30)
[2022-07-02] MEDS: dilTIAZem 30 MG TABLET PO (06:30)
[2022-07-02] MEDS: FUROSEMIDE 20 MG/2 ML VIAL IV ×2 (06:30→09:00)
--- NOTE | 2022-07-02 06:37 | PC.NURSE ---
Received patient from ED in minimal distress. Cardizem drip off at present, but will restart if necessary. Patient alert and awake no complaints of chest pain or shortness of breath. O2 sats below 88% patient placed on 2L n/c with improving nasal cannula. Patient medicated with first dose of cardizem po at 0630 awaiting results.
--- NOTE | 2022-07-02 08:07 | P.TELICUCN_ITS ---
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 Cheung Narrative: Patient is a 76 year old female who is admitted to ICU for A fib w/ RVR. Patiwnt with no known PMH who presnts to outside facility with complaints of palpitation. Further workup revealed A fib w/ RVR and was referred to ER for further evaluation. Subjectively patient reports having shortness of breath, LE swelling, cough, and orthopnea. No recent sick contact or travel history. Denies fever/chills, chest pain, N/V. In ER, she was found to be in A fib w/ RVR. Labs -> BNP 980, AST 74, ALt 73, D dimer 1302, hepatitis panel pending. CXR showed bilateral cephalization with blunted costophrenic angles. CTA PE study -> bilateral engorged vessels, smooth interlobular septal thickening w/ patchy GGO, bilateral pleural effusion, dilated RV and LA, and no obvious filling defect. She was started on lasix, diltiazem gtt, and eliquis. Admitted to ICU for further management. [facility] Surgical History Status post tubal ligation Family History Mother Age: 96 Heart disease Hypertension Social History household members: friend(s) Smoking Status: Never smoker Current Medications Current Medications Medications: Home Medications No Known Home Medications 07/02/22 [History Confirmed 07/02/22] Visit Medications (administered) Generic Name Dose Route Start Last Admin Trade Name Freq PRN Reason Stop Dose Admin Acetaminophen 650 mg 07/01/22 21:34 07/02/22 04:00 Acetaminophen 325 Mg Tablet PO 650 mg Q6H PRN Administration Fever/Mild Pain (1-3) Diltiazem HCl 30 mg 07/02/22 06:00 07/02/22 06:30 Diltiazem 30 Mg Tablet PO 30 mg Q6HR ANU Administration Furosemide 20 mg 07/02/22 06:00 07/02/22 06:30 Furosemide 20 Mg/2 Ml Vial IV 20 mg Q12H ANU Administration DILTIAZEM 125 mg in 125 mls @ 5 mls/hr 07/01/22 19:00 07/02/22 08:00 Diltiazem 125 Mg/125 Ml-D5w IV 0 mg/hr TITRATE ANU 0 mls/hr Titration Protocol 5 MG/HR Pantoprazole Sodium 20 mg 07/02/22 07:00 07/02/22 06:[address] 20 Mg Tablet PO 20 mg 0700 ANU Administration Review of Systems Review of Systems Narrative: As above Exam Vital Signs (past 8 hours): - 07/02/22 01:00 07/02/22 01:00 07/02/22 02:00 Temperature Pulse Rate 109 H Respiratory Rate 31 H Blood Pressure 111/67 103/57 L Pulse Oximetry 92 Oxygen Flow Rate 2 07/02/22 02:00 07/02/22 03:00 07/02/22 03:00 Temperature Pulse Rate 91 H 96 H Respiratory Rate 19 35 H Blood Pressure 98/63 Pulse Oximetry 91 94 Oxygen Flow Rate 2 2 07/02/22 04:00 07/02/22 04:00 07/02/22 05:00 Temperature Pulse Rate 87 Respiratory Rate 26 H Blood Pressure 95/52 L 92/58 L Pulse Oximetry 92 Oxygen Flow Rate 2 07/02/22 05:00 07/02/22 06:00 07/02/22 06:00 Temperature 98.3 F Pulse Rate 82 89 Respiratory Rate 18 30 H Blood Pressure 101/64 Pulse Oximetry 91 93 Oxygen Flow Rate 2 2 07/02/22 07:00 07/02/22 07:00 Temperature Pulse Rate 88 Respiratory Rate 41 H Blood Pressure 87/48 L Pulse Oximetry 91 Oxygen Flow Rate 2 Oxygen Delivery Method Room Air Oxygen Flow Rate 2 Narrative Exam Narrative: Not in distress. Speaking in full sentence. On 2 liters NC. Objective Labs Result Diagrams: 07/02/22 03:56 07/02/22 03:56 Labs: Laboratory Results - last 24 hr 07/01/22 07/01/22 07/01/22 19:04 19:04 19:04 WBC 8.0 RBC 4.34 Hgb 12.5 Hct 37.7 MCV 86.9 MCH 28.9 MCHC 33.2 RDW 14.9 H Plt Count 260 Neut % (Auto) 73.6 Lymph % (Auto) 16.8 L [place] % (Auto) 7.0 Eos % (Auto) 1.6 L Baso % (Auto) 1.0 Neut # (Auto) 5900 Lymph # (Auto) 1300 [place] # (Auto) 600 Eos # (Auto) 100 Baso # (Auto) 100 PT 12.7 INR 1.1 APTT 30 D-Dimer Sodium 140 Potassium 3.9 Chloride 112 H Carbon Dioxide 20 L BUN 21 H Creatinine 0.57 Estimated GFR > 60 BUN/Creatinine Ratio 36.8 H Glucose 86 Calcium 8.9 Magnesium 2.0 Total Bilirubin 0.6 AST 51 H ALT 56 H Alkaline Phosphatase 119 Total Creatine Kinase 166 H CK-MB (CK-2) 3.45 H CK-MB (CK-2) Rel Index 2.1 Troponin I < 0.012 NT-Pro-B Natriuret Pep Total Protein 7.1 Albumin 4.0 Globulin 3.1 Albumin/Globulin Ratio 1.3 Lipase 93 Procalcitonin SARS-CoV-2 (PCR) 07/01/22 07/01/22 07/01/22 19:04 19:04 19:04 WBC RBC Hgb Hct MCV MCH MCHC RDW Plt Count Neut % (Auto) Lymph % (Auto) [place] % (Auto) Eos % (Auto) Baso % (Auto) Neut # (Auto) Lymph # (Auto) [place] # (Auto) Eos # (Auto) Baso # (Auto) PT INR APTT D-Dimer 1302 H Sodium Potassium Chloride Carbon Dioxide BUN Creatinine Estimated GFR BUN/Creatinine Ratio Glucose Calcium Magnesium Total Bilirubin AST ALT Alkaline Phosphatase Total Creatine Kinase CK-MB (CK-2) CK-MB (CK-2) Rel Index Troponin I NT-Pro-B Natriuret Pep 812 H Total Protein Albumin Globulin Albumin/Globulin Ratio Lipase Procalcitonin 0.04 SARS-CoV-2 (PCR) 07/01/22 07/02/22 07/02/22 19:20 03:56 03:56 WBC 7.0 RBC 4.12 Hgb 11.8 L Hct 35.9 L MCV 87.2 MCH 28.7 MCHC 32.9 RDW 15.0 H Plt Count 250 Neut % (Auto) 72.7 Lymph % (Auto) 17.7 L [place] % (Auto) 8.3 Eos % (Auto) 0.5 L Baso % (Auto) 0.8 Neut # (Auto) 5100 Lymph # (Auto) 1200 [place] # (Auto) 600 Eos # (Auto) 0 Baso # (Auto) 100 PT INR APTT D-Dimer Sodium 141 Potassium 3.9 Chloride 111 H Carbon Dioxide 21 L BUN 21 H Creatinine 0.69 Estimated GFR > 60 BUN/Creatinine Ratio 30.4 H Glucose 113 H Calcium 8.7 Magnesium Total Bilirubin 0.8 AST 74 H ALT 73 H Alkaline Phosphatase 90 Total Creatine Kinase CK-MB (CK-2) CK-MB (CK-2) Rel Index Troponin I NT-Pro-B Natriuret Pep 980 H Total Protein 6.3 Albumin 3.6 Globulin 2.7 Albumin/Globulin Ratio 1.3 Lipase Procalcitonin SARS-CoV-2 (PCR) Negative 07/02/22 03:56 WBC RBC Hgb Hct MCV MCH MCHC RDW Plt Count Neut % (Auto) Lymph % (Auto) [place] % (Auto) Eos % (Auto) Baso % (Auto) Neut # (Auto) Lymph # (Auto) [place] # (Auto) Eos # (Auto) Baso # (Auto) PT INR APTT D-Dimer Sodium Potassium Chloride Carbon Dioxide BUN Creatinine Estimated GFR BUN/Creatinine Ratio Glucose Calcium Magnesium Total Bilirubin AST ALT Alkaline Phosphatase Total Creatine Kinase 119 CK-MB (CK-2) 2.16 CK-MB (CK-2) Rel Index 1.8 Troponin I < 0.012 NT-Pro-B Natriuret Pep Total Protein Albumin Globulin Albumin/Globulin Ratio Lipase Procalcitonin SARS-CoV-2 (PCR) Assessment & Plan Assessment & Plan narrative: NEURO: -- ENocurage early mobility RESP: # Acute hypoxemia respiratory failure -- Secondary to pulmonary edema from new onset CHF -- Agree w/ diuresis to seek net negative fluid balance -- Pending CHF workup as below -- Encourage IS -- Seek early mobility -- Goal SpO 2> 88% # Pleural effusion -- Small bilateral pleural effusion noted on CT chest c/w pulmonary edema -- Cont diuresis as above -- Recommend holding off on thoracentesis and cont diuretic -- Daily lung US CVS: # A fib w/ RVR -- Currently rate controlled -- On diltiazem 30 q6hr -- Pending TTE -- Check HbA1c and TSH -- CHADVASC score 3 -> needs systemic AC -- Recommend lovenox 1mg/kg SQ BID in the setting patient may warrant any procedure during hospital stay -- High lytes goal -- GOal HR < 110 # New onset CHF -- Pending TTE -- Cont lasix 20 IV BID to seek net negative fluid balance -- Strict I/O -- Low Na diet -- Daily weight -- Fluid restriction < 2 liters per day -- Needs cardiology follow up as outpatient : # Metabolic acidosis -- Cont diuresis to seek contraction alklaosis -- Daily BMP ENDO: -- Goal BS < 180 Discussed with bedside RN, Dr. Cheung, and patient. Time Spent With Patient Critical Care time: I spent a total of 32 minutes of critical care time on this patient's care today; this time is exclusive of procedural time.
[2022-07-02] MEDS: METOPROLOL IR 25 MG TABLET PO ×3 (11:40→23:28)
[2022-07-02 11:59] LABS: Hemoglobin A1C% w Est Avg Glu 5.9 % (4.0-6.0)
[2022-07-02 12:59] LABS: TSH w/ Reflex to FT4 3.85 uIU/mL (0.47-4.68)
--- NOTE | 2022-07-02 13:13 | CM.DANOTE ---
DCP: Case received, EMR reviewed and met with patient. Introduced self and role. Was able to obtain information regarding patient's baseline activity level prior to hospitalization, as well as her current living situation. DCP assessment completed with information currently available. Patient is a 76 year old female who admitted yesterday evening to the care of the hospitalist team. PCP: Dr. Gill. Payer: confirmed: Medicare. Patient came to the hospital via private vehicle secondary to having increased exertional fatigue and rapid heart rate. Patient had presented to an outside facility and was noted to be in rapid atrial fibrillation, and here at the hospital, was noted to be in atrial fibrillation with RVR.. Patient was placed on IV Cardizem. Met with patient in her room. She was sitting up in bed, oxygen in place. Patient is alert and oriented. She resides in [place] on [facility] [place], and is independent at her baseline. She indicated, she is normally healthy, this is all new for her. She resides alone, has her son downstairs. Her partner is currently here from [place], he was in the room earlier. Patient used to work for [employer], stated, she retired, then determined she wasn't ready to retire yet. Patient is currently working for [employer] on [facility] [place]. P: DCP to continue to follow. Plan is for patient to go home when she is deemed medically stable. Sallie Valles RN/Roll On Man Discharge Planning/Care Management CM Discharge Assessment Start: 07/02/22 13:11 Freq: Status: Active Protocol: Document 07/02/22 13:12 (Rec: 07/02/22 13:13 [id number]) Discharge Planning Assessment Assigned Animal Care Attendant Sallie Valles RN/Roll On Man Advance Directives? No History Provided By Patient,Medical Record Household Members friend(s) Comment Her partner is here from [place], and currently staying in her home Type of transporation used prior to Drives own vehicle admit Independent with ADL's Yes Is patient alert and oriented? Yes Caregiver for Another No Barriers to Discharge No Discharge Plan Home Transportation Arrangement Significant other Referrals Initiated None needed Whiteboard Updated in Patient Room with Yes name and ext. # of Animal Care Attendant Review Status In Process Next Review Type Continued Stay Review
--- NOTE | 2022-07-02 15:20 | P.PN_ITS ---
Subjective Subjective Date Patient Seen: 07/02/22 Time Patient Seen: 08:00 Interval history: She feels better today. She is still short of breath, but she is urinating well. She remains on oxygen. Her heart rate came under control and her dilt gtt was able to be stopped. Exam Vital Signs (past 8 hours): - 07/02/22 08:00 07/02/22 08:00 07/02/22 09:14 Temperature Pulse Rate 84 Respiratory Rate 26 H Blood Pressure 100/59 L Pulse Oximetry 90 L 93 Oxygen Delivery Method Oxygen Flow Rate 0 07/02/22 08:30 07/02/22 12:00 Temperature 97.9 F Pulse Rate 103 H Respiratory Rate 31 H Blood Pressure 105/55 L Pulse Oximetry 94 Oxygen Delivery Method Nasal Cannula Oxygen Flow Rate 2 Oxygen Delivery Method Nasal Cannula Oxygen Flow Rate 2 Narrative Exam Narrative: GEN: mild respiratory distress with increased work of breathing CV: irregular PULM: decreased breath sounds at bases EXT: 1+ edema Objective Labs Result Diagrams: 07/02/22 03:56 07/02/22 03:56 Labs: Laboratory Results - last 24 hr 07/01/22 07/01/22 07/01/22 19:04 19:04 19:04 WBC 8.0 RBC 4.34 Hgb 12.5 Hct 37.7 MCV 86.9 MCH 28.9 MCHC 33.2 RDW 14.9 H Plt Count 260 Neut % (Auto) 73.6 Lymph % (Auto) 16.8 L Culberson % (Auto) 7.0 Eos % (Auto) 1.6 L Baso % (Auto) 1.0 Neut # (Auto) 5900 Lymph # (Auto) 1300 Culberson # (Auto) 600 Eos # (Auto) 100 Baso # (Auto) 100 PT 12.7 INR 1.1 APTT 30 D-Dimer Sodium 140 Potassium 3.9 Chloride 112 H Carbon Dioxide 20 L BUN 21 H Creatinine 0.57 Estimated GFR > 60 BUN/Creatinine Ratio 36.8 H Glucose 86 Hemoglobin A1c Calcium 8.9 Magnesium 2.0 Total Bilirubin 0.6 AST 51 H ALT 56 H Alkaline Phosphatase 119 Total Creatine Kinase 166 H CK-MB (CK-2) 3.45 H CK-MB (CK-2) Rel Index 2.1 Troponin I < 0.012 NT-Pro-B Natriuret Pep Total Protein 7.1 Albumin 4.0 Globulin 3.1 Albumin/Globulin Ratio 1.3 Lipase 93 Procalcitonin TSH SARS-CoV-2 (PCR) 07/01/22 07/01/22 07/01/22 19:04 19:04 19:04 WBC RBC Hgb Hct MCV MCH MCHC RDW Plt Count Neut % (Auto) Lymph % (Auto) Culberson % (Auto) Eos % (Auto) Baso % (Auto) Neut # (Auto) Lymph # (Auto) Culberson # (Auto) Eos # (Auto) Baso # (Auto) PT INR APTT D-Dimer 1302 H Sodium Potassium Chloride Carbon Dioxide BUN Creatinine Estimated GFR BUN/Creatinine Ratio Glucose Hemoglobin A1c Calcium Magnesium Total Bilirubin AST ALT Alkaline Phosphatase Total Creatine Kinase CK-MB (CK-2) CK-MB (CK-2) Rel Index Troponin I NT-Pro-B Natriuret Pep 812 H Total Protein Albumin Globulin Albumin/Globulin Ratio Lipase Procalcitonin 0.04 TSH SARS-CoV-2 (PCR) 07/01/22 07/02/22 07/02/22 19:20 03:56 03:56 WBC 7.0 RBC 4.12 Hgb 11.8 L Hct 35.9 L MCV 87.2 MCH 28.7 MCHC 32.9 RDW 15.0 H Plt Count 250 Neut % (Auto) 72.7 Lymph % (Auto) 17.7 L Culberson % (Auto) 8.3 Eos % (Auto) 0.5 L Baso % (Auto) 0.8 Neut # (Auto) 5100 Lymph # (Auto) 1200 Culberson # (Auto) 600 Eos # (Auto) 0 Baso # (Auto) 100 PT INR APTT D-Dimer Sodium 141 Potassium 3.9 Chloride 111 H Carbon Dioxide 21 L BUN 21 H Creatinine 0.69 Estimated GFR > 60 BUN/Creatinine Ratio 30.4 H Glucose 113 H Hemoglobin A1c Calcium 8.7 Magnesium Total Bilirubin 0.8 AST 74 H ALT 73 H Alkaline Phosphatase 90 Total Creatine Kinase CK-MB (CK-2) CK-MB (CK-2) Rel Index Troponin I NT-Pro-B Natriuret Pep 980 H Total Protein 6.3 Albumin 3.6 Globulin 2.7 Albumin/Globulin Ratio 1.3 Lipase Procalcitonin TSH SARS-CoV-2 (PCR) Negative 07/02/22 07/02/22 07/02/22 03:56 03:56 11:58 WBC RBC Hgb Hct MCV MCH MCHC RDW Plt Count Neut % (Auto) Lymph % (Auto) Culberson % (Auto) Eos % (Auto) Baso % (Auto) Neut # (Auto) Lymph # (Auto) Culberson # (Auto) Eos # (Auto) Baso # (Auto) PT INR APTT D-Dimer Sodium Potassium Chloride Carbon Dioxide BUN Creatinine Estimated GFR BUN/Creatinine Ratio Glucose Hemoglobin A1c 5.9 Calcium Magnesium Total Bilirubin AST ALT Alkaline Phosphatase Total Creatine Kinase 119 CK-MB (CK-2) 2.16 CK-MB (CK-2) Rel Index 1.8 Troponin I < 0.012 NT-Pro-B Natriuret Pep Total Protein Albumin Globulin Albumin/Globulin Ratio Lipase Procalcitonin TSH 3.85 SARS-CoV-2 (PCR) PFSH Surgical History Status post tubal ligation Family History Mother Age: 96 Heart disease Hypertension Social History household members: friend(s) Smoking Status: Never smoker Assessment & Plan Assessment and plan (1) Atrial fibrillation with rapid ventricular response: Status: Acute (2) Bilateral pleural effusion: Status: Acute Assessment & Plan narrative: 1. Atrial fibrillation with RVR -no previous history of afib -tsh normal -possibly secondary to CHF exacerbation -improved on dilt gtt, initially transitioned to PO dilt, then to PO metoprolol given depressed EF -ECHO shows EF 40-45% -stop eliquis for now, may need thora, but will need to start prior to dc for high chads-vasc score 2. New onsent acute sytolic CHF with acute hypoxemic respiratory failure -ECHO with EF 40-45% -start oral metoprolol, plan to dc on ER -if blood pressure tolerates metoprolol, then start lisinopril -patient BP baseline is systolic 90s -will need outpatient cardiology follow up -troponins negative, so ACS ruled out -CTA negative for PE -IV lasix BID -low salt, fluid restriction diet -dietary consult for CHF diet -if respiratory status not improving, may need therapeutic thora, will attempt diuresis first Time Spent With Patient Critical Care time: I spent a total of [] minutes of critical care time on this patient's care today; this time is exclusive of procedural time. Quality VTE Deep Vein Thrombosis/Pulmonary Embolism Present on Admission: Yes
--- NOTE | 2022-07-02 17:13 | PC.NURSE ---
Day Shift Note Alert and oriented x3. Afib CVR/RVR 90-low 100s this AM. Diltiazem gtt off at 0800. Up to 150s with activity, decreases quickly back to 90s with rest. PO metoprolol administered per MD order. HR currently in the 80-90s. Denies chest pain or pressure, denies shortness of breath. Additional 20 mg of IV lasix given this am with good result (see totals). Decreased from 4L to 2L O2 NC, SpO2 92-94%, occ up to 97%. RA trialed but desatted to 84%. Encouraged to cough and deep breathe as breaths are quite shallow, pt acknowledged understanding. Independent/SBA in room, steady on feet. Call light within reach, using appropriately to make needs known.
[2022-07-02] MEDS: FUROSEMIDE 20 MG/2 ML VIAL 40 MG IV (18:12)
[2022-07-02] MEDS: SODIUM CHLORIDE 0.9% FLUSH 10 ML IV (20:14)
[2022-07-03] VITALS: BP 100/69; PULSE 105; RESP 22; TEMP 36.9; O2SAT 96
[2022-07-03 04:18] LABS: HBsAg Screen Negative (Negative); Hepatitis A Antibody IgM Negative (Negative); Hepatitis B Core Antibody IgM Negative (Negative); Hepatitis C Antibody 0.2 s/co ratio (0.0-0.9)
[2022-07-03 04:46] LABS: Hematocrit 37.1 % (36-46); Hemoglobin 12.1 g/dL (12.0-16.0); Mean Corpuscular HGB Conc 32.6 % (30-36); Mean Corpuscular Hemoglobin 28.4 PG (26-34); Mean Corpuscular Volume 87.3 fL (80-100); Platelet Count 259 X10^3/uL (150-400); Red Blood Cell Count 4.25 X10^6/uL (4.0-5.2); Red Cell Distribution Width 15.2 % (11.6-14.8); White Blood Cell Count 8.1 X10^3/uL (4.5-11.0)
[2022-07-03 04:58] LABS: BUN Creatinine Ratio 32.9 (6-22); Blood Urea Nitrogen 25 mg/dL (7-17); Calcium 8.1 mg/dL (8.4-10.2); Carbon Dioxide 25 mmol/L (22-32); Chloride 105 mmol/L (98-107); Estimated Glomerular Filt Rate > 60 mL/min (>60); Glucose 93 mg/dL (80-110); HEMOLYSIS < 15 (0-50); Magnesium 1.9 mg/dL (1.6-2.3); Potassium 3.5 mmol/L (3.4-5.1); Sodium 139 mmol/L (137-145)
[2022-07-03] MEDS: ACETAMINOPHEN 325 MG TABLET 650 MG PO (05:40)
[2022-07-03] MEDS: METOPROLOL IR 25 MG TABLET PO (05:40)
[2022-07-03 06:00] VITALS: BP 127/53; PULSE 100; RESP 18; TEMP 36.7; O2SAT 98
[2022-07-03] MEDS: SODIUM CHLORIDE 0.9% FLUSH 10 ML IV ×2 (06:45→08:39)
[2022-07-03] MEDS: FUROSEMIDE 20 MG/2 ML VIAL 40 MG IV (06:45)
--- NOTE | 2022-07-03 08:24 | DIET.CONS ---
Dietary Consultation Note Admission Date: 07/01/2022 20:43 Assessment: 76y F with preDM and new onset Afib and CHF referred to nutrition for Heart Healthy diet education. Prior to this hospitalization, pt on no medications, only saw PCP for well visits. Pt at healthy BMI for age (23.4). Pt states she cooks mainly from scratch, has a garden and likes fruits and veggies. Pt reports significant life stress over the past 2mo. She went to [place] to move adult son in with her ( with children) because of mental health concerns. Pt is doing all cooking, cleaning, laundry, while still working a [employer] and is quite worried about him. Pt reports despite scratch cooking she does use carmina sauces and canned tomatoes which may be high in sodium and sugar. She also is a fan of butter. Pt desires to manage her cardiovascular condition with lifestyle changes but does understand importance of medication management. Pt plans to follow closely with PCP [facility]. Pt still on NC o2 support but states breathing much better since diuresing as she was SOB and mouth breathing upon admission. Ht: 160.02 cm Wt: 60 kg BMI: 24.4 MNA: 14 Chucho Score: 22 Diet: 07/01/22 Breakfast Heart Healthy Diet Diet Modifications: Sodium Level: 2 gm Sodium Nutrition Percent Meal Consumed 50% 07/02/22 18:00 Percent Meal Consumed 75% 07/02/22 12:00 Percent Meal Consumed 100% 07/02/22 09:31 Labs: RBC 4.25 X10^6/uL (4.0-5.2) 07/03/22 04:14 Hgb 12.1 g/dL (12.0-16.0) 07/03/22 04:14 Hct 37.1 % (36-46) 07/03/22 04:14 Creatinine 0.76 mg/dL (0.52-1.04) 07/03/22 04:14 Hemoglobin A1c 5.9 % (4.0-6.0) 07/02/22 03:56 NT-Pro-B Natriuret Pep 980 pg/mL (<450) H 07/02/22 03:56 Nutrition Diagnosis: altered nutrition related laboratory values (BNP, A1c) r/t excessive intake sodium, added sugar, and saturated fat aeb pt with admit BNP 980, A1c 5.9, pt reports healthy diet besides use of carmina sauces and some canned products, likes butter. Interventions: 1. Using Heart Healthy handout, educated pt on sodium and saturated fat reccs for cardiovascular health. Discussed limiting meal time sodium to 600mg, purchasing no salt added canned products and monitoring sodium in sauces. Encouraged pt to incorporate more of a Mediterranean diet lifestyle which pt desires to do. Shared resources for Med style recipes. 2. To support preDM state, recc pt be careful with added sugar in sauces. 3. Counselled pt on need for discussion with son on helping out with ADLs and importance of pts self-care and stress reducing practices. Pt endorses need for this. EER: 2g sodium daily, no more than 25g added sugar daily Electronically Signed by: Leta Barfield 07/03/22 08:24 Clinical Dietitian [address] [address]
[2022-07-03] MEDS: POTASSIUM CHLORIDE 20 MEQ TAB 40 MEQ PO (09:36)
--- NOTE | 2022-07-03 11:10 | PM.DS.1 ---
History of Present Illness History of Present Illness Date Patient Seen: 07/03/22 Time Patient Seen: 11:10 Chief complaint: Acute Afib Narrative: Per Admitting provider: 76-year-old female nonsmoker and previously healthy female presents to the emergency department with a chief complaint of 10 days increasing exertional fatigue and rapid heart rate.? Today she finally presented to an outside facility and was evaluated and found to be in a rapid atrial fibrillation, she was given aspirin and encouraged to present to the emergency department for further evaluation.? She denies any history of the same and has no new medications or other abnormalities in her recent medical history.? She feels fatigued with exertion but denies any specific chest pain.? She is had no fever or chills.? She denies nausea or vomiting.? She denies any history of hypertension, diabetes or stroke. When I saw her in the ER she continues to have palpitations and shortness of breath. Patient confirms her breathing difficulties are worse when she is lying flat and then worsened cough at night. Patient also confirms that worsening pedal edema and dyspnea on exertion, unable to carry her daily activities because of the shortness of breath. She denies any orthopnea. Patient denies any episodes of chest pain but confirms the palpitations. Patient denies any recent viral illness episodes. Discharge Providers Provider Date of admission: 07/01/22 20:43 Discharge Date: 07/03/22 Primary care physician: Hanna Gill PA-C Consults: 07/02/22 15:26 Consult to Dietitian, Adult Routine Comment: Reason For Exam: new dx of chf, chf diet recs please Discharge provider: Honorio Acosta DO Summary Hospital Course Discharge Diagnosis: 1. Atrial fibrillation with RVR 2. New onsent acute diastolic (borderline EF 40%) CHF with acute hypoxemic respiratory failure, respiratory failure resolved 3. Bilateral pleural effusions Hospital Course: This is a 76-year-old female admitted for new onset acute heart failure with AFib with RVR. Echocardiogram showed borderline EF of 40-45%. She was initially started on a diltiazem drip and slowly titrated off with metoprolol initiation. She was able to be rate controlled and will continue oral metoprolol 75 mg twice a day at the time of discharge. She was also started on diuretics given her heart failure and had continued hypoxia for a few days until this resolved as well. She was discharged on furosemide 40 mg twice a day, and will likely need continued diuresis given her bilateral pleural effusion noted on imaging. I recommend patient continue to follow her daily weight and follow up with primary care with cardiology referral for continued dosing adjustments of diuretics and medication optimization. She was started on apixaban for stroke prevention given elevated CHADS-VASC score. She was no longer requiring oxygen at the time of discharge and hypoxia likely was due to acute heart failure. Time Spent with Patient Time spent: Greater than 30 minutes Exam Vital Signs (past 8 hours): - 07/03/22 06:00 07/03/22 07:00 Temperature 98.1 F Pulse Rate 100 H Respiratory Rate 18 Blood Pressure 127/53 L Pulse Oximetry 98 Oxygen Delivery Method Nasal Cannula Oxygen Flow Rate 2 Oxygen Delivery Method Nasal Cannula Oxygen Flow Rate 2 Narrative Exam Narrative: General:? Patient is well developed and well nourished, in no distress at this time. HEENT:? Normocephalic, atraumatic, extraocular muscles intact, oral pharynx is clear and mucous membranes are moist. Neck: supple and symmetric, trachea is midline, no cervical adenopathy. Negative for JVD Chest:? Normal AP diameter and contour without kyphoscoliosis, no tachypnea, equal chest rise bilaterally. Lungs:? decreased breath sounds bilateral lung bases, no Cardio:?regular rate with irregularly irregular rhythm. No m/r/g. Abdomen: S NT ND Musculoskeletal:? Muscle strength and tone are equal within normal limits, no deformity. Extremities: Trace b/l LE edema, No joint effusions. No cyanosis or clubbing. Skin:? Pale,? Warm to touch,dry and intact without rashes, ulcerations or petechiae.? Neuro:? Alert and orientated x3,? sensation to touch intact in all extremities, no gross deficits noted of cranial nerves. Psych:? Patient has a well-kept appearance, appropriate affect, mental status attitude thought context and judgment are appropriate for age. Objective Labs Result Diagrams: 07/03/22 04:14 07/03/22 04:14 Labs: Laboratory Results - last 24 hr 07/02/22 07/02/22 07/02/22 03:56 03:56 11:58 WBC RBC Hgb Hct MCV MCH MCHC RDW Plt Count Sodium Potassium Chloride Carbon Dioxide BUN Creatinine Estimated GFR BUN/Creatinine Ratio Glucose Hemoglobin A1c 5.9 Calcium Magnesium TSH 3.85 Nasal Screen MRSA (PCR) Hepatitis A IgM Ab Negative Hep Bs Antigen Negative Hep B Core IgM Ab Negative Hepatitis C Antibody 0.2 Hep C Ab Signal/Cutoff Comment 07/02/22 07/03/22 07/03/22 20:00 04:14 04:14 WBC 8.1 RBC 4.25 Hgb 12.1 Hct 37.1 MCV 87.3 MCH 28.4 MCHC 32.6 RDW 15.2 H Plt Count 259 Sodium 139 Potassium 3.5 Chloride 105 Carbon Dioxide 25 BUN 25 H Creatinine 0.76 Estimated GFR > 60 BUN/Creatinine Ratio 32.9 H Glucose 93 Hemoglobin A1c Calcium 8.1 L Magnesium 1.9 TSH Nasal Screen MRSA (PCR) Negative for mrsa Hepatitis A IgM Ab Hep Bs Antigen Hep B Core IgM Ab Hepatitis C Antibody Hep C Ab Signal/Cutoff PFSH Surgical History Status post tubal ligation Family History Mother Age: 96 Heart disease Hypertension Social History household members: friend(s) Smoking Status: Never smoker Discharge Plan Discharge Plan Patient Disposition: Home Provider Discharge Comment: You were admitted to the hospital with atrial fibrillation with a fast heart rate and heart failure. This was improved with medications. Please follow up with your PCP as soon as possible for possible cardiology referral and further medication adjustments. Discharge orders & Medications Prescriptions: New metoprolol succinate 50 mg tablet extended release 24 hr 75 mg PO BID 30 Days Qty: 90 0RF furosemide 40 mg tablet 40 mg PO BID 30 Days Qty: 60 0RF Eliquis 5 mg tablet 5 mg PO BID 30 Days Qty: 60 0RF Follow up/Referrals: Hanna Gill PA-C [Primary Care Provider] - Diet/Activity/Treatments Diet: Diet as Tolerated Activity: As tolerated Discharge Data Primary Care Provider: Hanna Gill Quality VTE Deep Vein Thrombosis/Pulmonary Embolism Present on Admission: Yes
[2022-07-03] MEDS: METOPROLOL IR 25 MG TABLET 37.5 MG PO (12:01)
== END 2022-07-03 12:15 | disposition home or self-care (01) | DRG 308 ==
LOC: ED 19:00 → AC 20:44 → ICU 22:37
PROVIDERS: Internal Medicine; Internal Medicine Pulmonary Disease; Admitting Provider Family Medicine; Emergency Provider Emergency Medicine; PCP Physician Assistant; Referring Provider Emergency Medicine; Visit Provider Family Medicine
DX: I48.91 Unspecified atrial fibrillation (principal); I50.21 Acute systolic (congestive) heart failure; J96.01 Acute respiratory failure with hypoxia; Z20.822 Contact with and (suspected) exposure to COVID-19
CPT/HCPCS: 36415; 71045; 71275; 76705; 80048; 80053; 80074; 82550; 82553; 83036; 83690; 83735; 83880; 84145; 84443; 84484; 85025; 85027; 85379; 85610; 85730; 87635; 87797; 93005; 93306; 96374; 99284; C9803; J1940; Q9967

== ENCOUNTER → 2022-07-29 10:00 | Outpatient (CLI) | payer MEDICARE, SELFPAY ==
[2022-07-01 22:38] VITALS: BMI 24.4
[2022-07-29 10:53] LABS: Alanine Aminotransferase 70 IU/L (<35); Albumin Globulin Ratio 1.2 (1.0-2.8); Alkaline Phosphatase 132 U/L (38-126); Aspartate Aminotransferase 67 IU/L (14-36); BUN Creatinine Ratio 31.9 (6-22); Bilirubin Total 0.7 mg/dL (0.2-1.3); Blood Urea Nitrogen 23 mg/dL (7-17); Calcium 8.7 mg/dL (8.4-10.2); Carbon Dioxide 26 mmol/L (22-32); Chloride 105 mmol/L (98-107); Estimated Glomerular Filt Rate > 60 mL/min (>60); Globulin 3.3 g/dL (1.7-4.1); Glucose 95 mg/dL (80-110); HEMOLYSIS < 15 (0-50); Potassium 3.5 mmol/L (3.4-5.1); Sodium 140 mmol/L (137-145); Total Protein 7.3 g/dL (6.3-8.2)
== END ==
PROVIDERS: PCP Physician Assistant; Referring Provider Physician Assistant; Visit Provider Physician Assistant
DX: I48.91 Unspecified atrial fibrillation (principal)
CPT/HCPCS: 36415; 80053

== ENCOUNTER → 2022-09-09 12:54 | Outpatient (CLI) | payer MEDICARE, SELFPAY ==
[2022-07-01 22:38] VITALS: BMI 24.4
[2022-09-09 19:33] LABS: Alanine Aminotransferase 51 IU/L (<35); Albumin 3.8 g/dL (3.5-5.0); Albumin Globulin Ratio 1.4 (1.0-2.8); Alkaline Phosphatase 117 U/L (38-126); Aspartate Aminotransferase 57 IU/L (14-36); BUN Creatinine Ratio 32.9 (6-22); Blood Urea Nitrogen 25 mg/dL (7-17); Calcium 8.6 mg/dL (8.4-10.2); Carbon Dioxide 28 mmol/L (22-32); Chloride 101 mmol/L (98-107); Estimated Glomerular Filt Rate > 60 mL/min (>60); Gamma Glutamyl Transpeptidase 67 U/L (12-43); Globulin 2.8 g/dL (1.7-4.1); Glucose 83 mg/dL (80-110); HEMOLYSIS < 15 (0-50); Sodium 138 mmol/L (137-145); Total Protein 6.6 g/dL (6.3-8.2)
== END ==
PROVIDERS: PCP Physician Assistant; Visit Provider Physician Assistant
DX: R74.8 Abnormal levels of other serum enzymes (principal)
CPT/HCPCS: 80053; 82977

== ENCOUNTER → 2022-09-24 11:03 | Outpatient (CLI) | payer MEDICARE, SELFPAY ==
[2022-07-01 22:38] VITALS: BMI 24.4
--- NOTE | 2022-09-24 11:05 | DI.RAD.S_ITS ---
PROCEDURE: XR DEXA AXIAL SKELETON INDICATIONS: screening COMPARISON: None. FINDINGS: This blank DEXA report has been sent in error by the PACS system. The correct and complete report will be forthcoming in 1-2 days. Thank you for your patience and understanding. Dictated by: Ghanshyam Dumas M.D. on 09/24/2022 at 16:13 Approved by: Ghanshyam Dumas M.D. on 09/24/2022 at 16:13
--- NOTE | 2022-09-24 11:05 | DI.MG.S_ITS ---
BILATERAL DIGITAL SCREENING MAMMOGRAM 3D/2D WITH CAD: 09/24/2022 CLINICAL: Routine screening. Comparison is made to exams dated: 09/01/2020 mammogram, 08/23/2019 mammogram, 04/26/2018 mammogram, and 09/04/2015 mammogram - outside facility. There are scattered areas of fibroglandular density in both breasts (category b / 25%-50% glandular tissue). Current study was also evaluated with a Computer Aided Detection (CAD) system. No significant masses, calcifications, or other findings are seen in either breast. There has been no significant interval change. IMPRESSION: NEGATIVE There is no mammographic evidence of malignancy. A 1 year screening mammogram is recommended. Based on the Tyrer Cuzick model (a risk assessment model) the patient's lifetime risk is 6.7% and her 10 year risk is 0.0%. According to the ACR, ACS, and NCCN guidelines, an annual breast MRI exam along with mammogram is recommended if the patient's lifetime risk is 20% or greater. This exam was interpreted at Station ID: [id number]. NOTE: For mammograms, a report in lay terms will be sent to the patient. Approximately 15% of breast malignancies will not be visualized mammographically. In the management of a palpable breast mass, a negative mammogram must not discourage biopsy of a clinically suspicious lesion. Electronically Signed By: Sridhar pablo/samantha:09/24/2022 16:45:59 letter sent: Normal Exam ACR BI-RADS Category 1: Negative [id number]
== END ==
PROVIDERS: PCP Physician Assistant; Referring Provider Physician Assistant; Visit Provider Physician Assistant
DX: Z78.0 Asymptomatic menopausal state (principal); Z12.31 Encounter for screening mammogram for malignant neoplasm of breast; Z13.820 Encounter for screening for osteoporosis; M81.0 Age-related osteoporosis without current pathological fracture
CPT/HCPCS: 77063; 77067; 77080

== ENCOUNTER → 2022-10-13 13:45 | Outpatient (CLI) | payer MEDICARE, SELFPAY ==
[2022-09-26 09:27] VITALS: BMI 24.4
[2022-10-13 19:42] LABS: HEMOLYSIS < 15 (0-50); Iron 64 ug/dL (37-170)
[2022-10-13 19:45] LABS: Alanine Aminotransferase 49 IU/L (<35); Albumin 3.9 g/dL (3.5-5.0); Albumin Globulin Ratio 1.3 (1.0-2.8); Alkaline Phosphatase 115 U/L (38-126); Aspartate Aminotransferase 53 IU/L (14-36); Blood Urea Nitrogen 28 mg/dL (7-17); Calcium 8.9 mg/dL (8.4-10.2); Carbon Dioxide 28 mmol/L (22-32); Chloride 103 mmol/L (98-107); Estimated Glomerular Filt Rate > 60 mL/min (>60); Globulin 2.9 g/dL (1.7-4.1); Glucose 83 mg/dL (80-110); HEMOLYSIS < 15 (0-50); Potassium 4.3 mmol/L (3.4-5.1); Sodium 138 mmol/L (137-145); Total Protein 6.8 g/dL (6.3-8.2)
[2022-10-13 20:52] LABS: Percent Iron Saturation 14 % (15-50); Total Iron Binding Capacity 444 ug/dL (265-497); Transferrin 314 mg/dL (206-381)
[2022-10-17 18:05] LABS: Anti Mitochondrial ABY IGG <20.0 Units (0.0-20.0)
[2022-10-18 16:36] LABS: ANA Screen, IFA Negative (.)
== END ==
PROVIDERS: PCP Physician Assistant; Visit Provider Physician Assistant
DX: R74.8 Abnormal levels of other serum enzymes (principal)
CPT/HCPCS: 80053; 83516; 83540; 83550; 86038

== ENCOUNTER → 2022-10-27 10:40 | Outpatient (CLI) | payer MEDICARE, SELFPAY ==
[2022-09-26 09:27] VITALS: BMI 24.4
--- NOTE | 2022-10-28 02:20 | DI.NM.S_ITS ---
DATE OF SERVICE: 10/27/2022 PROCEDURE: Exercise perfusion study. INDICATION: Atrial fibrillation. RADIOPHARMACEUTICAL: 25.1 millicurie technetium-99m Myoview IV was injected at stress and 11.7 millicurie technetium-99m Myoview IV was injected at rest. CARDIAC STRESS: The patient underwent exercise perfusion study under the supervision of an attending staff. The patient walked on Esequiel protocol for 3 minutes and 47 seconds, achieved 142 beats of heart rate at peak exercise, which was 99% of target heart rate. Resting heart rate was about 83. Resting blood pressure 88/60 and peak blood pressure 100/60 mmHg. The patient felt dyspnea and fatigue. No chest pain. Baseline rhythm was atrial fibrillation with nonspecific ST-T changes with controlled ventricular rate. During exercise, there were no new convincing ischemic changes. Rare PVCs were seen. The patient remained in Afib. RAW DATA: Breast shadow seen. GATED STUDY: Resting LV ejection fraction 76 and stress LV ejection fraction 82% without any obvious wall motion abnormalities. Resting end-diastolic volume 38 mL. TID ratio 1.05, which is within normal limits. Lung/heart ratio 0.38, which is within normal limits. MYOCARDIAL PERFUSION SCAN: Stress supine and resting supine images revealed minimally decreased perfusion of anteroapex which got resolved during prone images suggestive of breast tissue attenuation artifact. No convincing ischemia or infarction. CONCLUSION: This is a normal myocardial perfusion study with evidence of breast tissue attenuation artifact, which got resolved during stress prone images. Preserved left ventricular function. Poor exercise tolerance. Baseline rhythm atrial fibrillation. The patient achieved 4.6 METs of workload. JUNIOR positive 24%. Resting blood pressure 88/60 and peak blood pressure 100/60. In view of normal myocardial perfusion, preserved left ventricular function, overall as far as perfusion scan is concerned this is a low-risk myocardial perfusion scan. Maxwell Hayley - TERRY/nany/candie doc#: [id number]/job#: [id number] dd: 10/27/2022 16:45:00 dt: 10/28/2022 02:10:00 DICTATING MD/COPIES TO: Ramiro Graham MD COPIES MNE: THOMAS;
== END ==
PROVIDERS: PCP Physician Assistant; Referring Provider Internal Medicine Cardiovascular Disease; Visit Provider Internal Medicine Cardiovascular Disease
DX: I48.91 Unspecified atrial fibrillation (principal)
CPT/HCPCS: 78452; 93017; A9502

== ENCOUNTER → 2022-11-04 13:42 | Outpatient (CLI) | payer MEDICARE, SELFPAY ==
[2022-11-04 08:59] VITALS: BMI 24.4
[2022-11-04 20:07] LABS: Alanine Aminotransferase 64 IU/L (<35); Albumin 4.3 g/dL (3.5-5.0); Albumin Globulin Ratio 1.3 (1.0-2.8); Alkaline Phosphatase 106 U/L (38-126); Aspartate Aminotransferase 55 IU/L (14-36); Bilirubin Total 1.4 mg/dL (0.2-1.3); Gamma Glutamyl Transpeptidase 84 U/L (12-43); Globulin 3.2 g/dL (1.7-4.1); HEMOLYSIS 20 (0-50); Total Protein 7.5 g/dL (6.3-8.2)
[2022-11-06 03:23] LABS: Hepatitis A Ab Total Negative (Negative)
[2022-11-06 15:52] LABS: Hepatitis B Surface Antigen NEGATIVE s/c (NEGATIVE)
[2022-11-06 16:13] LABS: Hep C Virus Ab w/Reflex Quant NEGATIVE s/c (NEGATIVE)
== END ==
PROVIDERS: PCP Physician Assistant; Visit Provider Physician Assistant
DX: R74.8 Abnormal levels of other serum enzymes (principal)
CPT/HCPCS: 80076; 82977; 83915; 86708; 86803; 87340

== ENCOUNTER → 2022-12-10 12:52 | Outpatient (CLI) | payer MEDICARE, SELFPAY ==
[2022-11-04 08:59] VITALS: BMI 24.4
--- NOTE | 2022-12-10 12:53 | DI.US.S_ITS ---
PROCEDURE: US ABDOMEN LIMITED INDICATIONS: ELEVATED LIVER ENZYMES x 6 MOS - NORMAL WEIGHT, NO ALCOHOL TECHNIQUE: Real-time scanning was performed of the abdominal and retroperitoneal organs, with image documentation. COMPARISON: [facility], , US ABDOMEN LIMITED, 07/02/2022, 8:39. FINDINGS: Liver: Liver is normal in size and homogeneous in echotexture. Gallbladder: The gallbladder wall measures 2.9 mm in diameter. A for aging cap is noted. No stones, sludge, pericholecystic fluid, or sonographic Monson sign. Biliary ducts: Intrahepatic bile ducts are non-dilated. Extrahepatic bile duct caliber measures 2.5 mm. Normal is 6-7 mm or less in diameter, or 10 mm or less post-cholecystectomy. Pancreas: Visualized portions of the pancreas are sonographically normal. IMPRESSION: 1. No cholelithiasis or findings to suggest choledocholithiasis or acute cholecystitis. Dictated by: Candie Loving M.D. on 12/10/2022 at 15:33 Approved by: Candie Loving M.D. on 12/10/2022 at 15:34
== END ==
PROVIDERS: PCP Physician Assistant; Referring Provider Physician Assistant; Visit Provider Physician Assistant
DX: R74.8 Abnormal levels of other serum enzymes (principal)
CPT/HCPCS: 76705

== ENCOUNTER → 2023-08-12 13:05 | Outpatient (CLI) | payer MEDICARE, SELFPAY ==
[2022-11-04 08:59] VITALS: BMI 24.4
[2023-08-12 19:28] LABS: Add Manual Diff / Slide Review NO; Basophils Absolute Auto 100 /uL (0-100); Basophils Percent Auto 1.1 % (0-2); Eosinophils Absolute Auto 300 /uL (0-450); Eosinophils Percent Auto 4.4 % (2-4); Hematocrit 35.2 % (36-46); Hemoglobin 11.8 g/dL (12.0-16.0); Lymphocytes Absolute Auto 2000 /uL (1100-4500); Lymphocytes Percent Auto 28.5 % (25-40); Mean Corpuscular HGB Conc 33.4 % (30-36); Mean Corpuscular Volume 89.6 fL (80-100); Monocytes Absolute Auto 600 /uL (0-900); Monocytes Percent Auto 7.8 % (3-14); Neutrophils Absolute Auto 4100 /uL (1500-7000); Neutrophils Percent Auto 58.2 % (50-75); Platelet Count 235 X10^3/uL (150-400); Red Blood Cell Count 3.93 X10^6/uL (4.0-5.2); Red Cell Distribution Width 12.9 % (11.6-14.8); White Blood Cell Count 7.1 X10^3/uL (4.5-11.0)
[2023-08-12 19:41] LABS: Alanine Aminotransferase 50 IU/L (<35); Albumin 4.1 g/dL (3.5-5.0); Albumin Globulin Ratio 1.3 (1.0-2.8); Alkaline Phosphatase 94 U/L (38-126); Aspartate Aminotransferase 47 IU/L (14-36); BUN Creatinine Ratio 32.8 (6-22); Bilirubin Total 0.6 mg/dL (0.2-1.3); Blood Urea Nitrogen 22 mg/dL (7-17); Calcium 9.7 mg/dL (8.4-10.2); Carbon Dioxide 26 mmol/L (22-32); Chloride 103 mmol/L (98-107); Estimated Glomerular Filt Rate > 60 mL/min (>60); Globulin 3.1 g/dL (1.7-4.1); Glucose 92 mg/dL (80-110); HEMOLYSIS < 15 (0-50); Potassium 4.5 mmol/L (3.4-5.1); Sodium 138 mmol/L (137-145); Total Protein 7.2 g/dL (6.3-8.2)
== END ==
PROVIDERS: PCP Physician Assistant; Visit Provider Physician Assistant
DX: I95.9 Hypotension, unspecified (principal); R74.8 Abnormal levels of other serum enzymes
CPT/HCPCS: 80053; 85025

== ENCOUNTER → 2024-02-29 10:34 | Outpatient (CLI) | payer MEDICARE, SELFPAY ==
[2022-11-04 08:59] VITALS: BMI 24.4
[2024-02-29 20:27] LABS: Add Manual Diff / Slide Review NO; Basophils Absolute Auto 100 /uL (0-100); Eosinophils Absolute Auto 100 /uL (0-450); Eosinophils Percent Auto 1.2 % (2-4); Hematocrit 35.1 % (36-46); Hemoglobin 11.8 g/dL (12.0-16.0); Lymphocytes Absolute Auto 1400 /uL (1100-4500); Lymphocytes Percent Auto 21.8 % (25-40); Mean Corpuscular HGB Conc 33.6 % (30-36); Mean Corpuscular Hemoglobin 30.5 PG (26-34); Mean Corpuscular Volume 90.7 fL (80-100); Monocytes Absolute Auto 500 /uL (0-900); Monocytes Percent Auto 8.5 % (3-14); Neutrophils Absolute Auto 4400 /uL (1500-7000); Neutrophils Percent Auto 67.5 % (50-75); Platelet Count 215 X10^3/uL (150-400); Red Blood Cell Count 3.87 X10^6/uL (4.0-5.2); Red Cell Distribution Width 13.4 % (11.6-14.8); White Blood Cell Count 6.5 X10^3/uL (4.5-11.0)
[2024-02-29 20:42] LABS: Alanine Aminotransferase 28 IU/L (<35); Albumin Globulin Ratio 1.3 (1.0-2.8); Alkaline Phosphatase 94 U/L (38-126); Aspartate Aminotransferase 35 IU/L (14-36); BUN Creatinine Ratio 34.2 (6-22); Bilirubin Total 0.8 mg/dL (0.2-1.3); Blood Urea Nitrogen 27 mg/dL (7-17); Calcium 9.2 mg/dL (8.4-10.2); Carbon Dioxide 23 mmol/L (22-32); Chloride 109 mmol/L (98-107); Estimated Glomerular Filt Rate > 60 mL/min (>60); Glucose 85 mg/dL (80-110); HEMOLYSIS < 15 (0-50); Potassium 4.1 mmol/L (3.4-5.1); Sodium 138 mmol/L (137-145)
== END ==
PROVIDERS: PCP Physician Assistant; Referring Provider Physician Assistant; Visit Provider Physician Assistant
DX: D64.9 Anemia, unspecified (principal); R74.8 Abnormal levels of other serum enzymes
CPT/HCPCS: 80053; 85025

== ENCOUNTER → 2024-08-11 11:23 | Outpatient (CLI) | payer MEDICARE, SELFPAY ==
[2022-11-04 08:59] VITALS: BMI 24.4
--- NOTE | 2024-08-11 11:25 | DI.MG.S_ITS ---
BILATERAL DIGITAL SCREENING MAMMOGRAM 3D/2D WITH CAD: 08/11/2024 CLINICAL: Routine screening. Comparison is made to exams dated: 09/24/2022 mammogram - [facility], 09/01/2020 mammogram, 08/23/2019 mammogram, and 09/04/2015 mammogram - outside facility. There are scattered areas of fibroglandular density (category b / 25%-50% glandular tissue). Current study was also evaluated with a Computer Aided Detection (CAD) system. No significant masses, calcifications, or other findings are seen in either breast. There has been no significant interval change. IMPRESSION: NEGATIVE There is no mammographic evidence of malignancy. A 1 year screening mammogram is recommended. Based on the Tyrer Cuzick model (a risk assessment model) the patient's lifetime risk is 2.8% and her 10 year risk is 0.0%. According to the ACR, ACS, and NCCN guidelines, an annual breast MRI exam along with mammogram is recommended if the patient's lifetime risk is 20% or greater. This exam was interpreted at Station ID: [id number]. NOTE: For mammograms, a report in lay terms will be sent to the patient. Approximately 15% of breast malignancies will not be visualized mammographically. In the management of a palpable breast mass, a negative mammogram must not discourage biopsy of a clinically suspicious lesion. Electronically Signed By: Sridhar [email or web address]:08/12/2024 06:43:10 letter sent: Normal Exam ACR BI-RADS Category 1: Negative
== END ==
PROVIDERS: PCP Physician Assistant; Referring Provider Physician Assistant; Visit Provider Physician Assistant
DX: Z12.31 Encounter for screening mammogram for malignant neoplasm of breast (principal)
CPT/HCPCS: 77063; 77067